=== PATIENT | female | born 1965 | race Caucasian/White ===

== ENCOUNTER 2016-08-29 14:45 | Outpatient (RCR) | payer OTHER ==
[~2016-08-29 14:45] MED LIST: ALEVE 220MG220 MG PO; ASPI325T6 PO; ATIVAN 0.50.5 MG/TAB PO; ATIVAN 1MG T1 MG/TAB PO; ATIVAN2 MG PO; CALCIUM-500 5001 CTB PO; CELEXA 20MG20 MG/TAB PO; CELEXA40 MG PO; CITALOPRAM PO; FERROUS SULFATE65 MG PO; FOLIC ACID 11 MG/TA1 PO; FOLIC ACID 40400 MCG PO; FOLIC ACID800 MCG PO; IRON325 M1 PO; IRON325 MG PO; K-DUR 10 MEQ T10 MEQ; KLOR-CON20 MEQ PO; LAMICTAL 100MG100 MG PO; LAMICTAL150 MG PO; LEVAQUIN 750MG750 M1 PO; MAXALT5 MG PO; MOTRIN 200200 MG/TAB PO; NATURE'S BLE1000 MCG PO; NORCO 325 MG-7.1 TAB PO; OXYCONTIN 10MG10 MG PO; PHENTERMINE15 MG PO; RISPERDAL 0.20.25 MG PO; RISPERDAL 1M1 MG/TAB PO; RISPERDAL2 MG PO; STOOL SOFTENER100 M2 PO; TENORMIN 2525 MG/TAB PO; VITAMIN C500 MG PO; ZOFRAN ODT4 MG PO
== END 2016-09-05 08:45 | disposition home or self-care (01) ==
LOC: WSPT 14:45
DX: M25.862 Other specified joint disorders, left knee (principal)

== ENCOUNTER 2016-10-01 15:45 | Outpatient (RCR) | payer OTHER | END 2016-11-14 10:34 | disposition home or self-care (01) | LOC: WSPT 15:45 | DX: M62.830 Muscle spasm of back (principal) | CPT/HCPCS: G0283-GP ==

== ENCOUNTER → 2017-01-16 | Outpatient (CLI) | payer BC ==
[~2017-01-16] MED LIST changes: +K-DUR20 MEQ PO; +NORCO 325 MG-51 TAB PO; +PERCOCET 325 MG1 TA2 PO; +ULTRAM 50MG TAB50 MG PO
== END ==
LOC: BHSO 13:30
DX: F31.73 Bipolar disorder, in partial remission, most recent episode manic (principal)

== ENCOUNTER 2017-03-17 13:11 | Emergency (ER) | payer BC ==
[~2017-03-17] VITALS: Ht 162.6 cm; Wt 125.0 kg
[~2017-03-17 13:11] MED LIST changes: -K-DUR20 MEQ PO; -NORCO 325 MG-51 TAB PO; -PERCOCET 325 MG1 TA2 PO; -ULTRAM 50MG TAB50 MG PO
[2017-03-17 13:18] VITALS: BP 131/76; PULSE 77; TEMP 97.3
[2017-03-17] MEDS ORDERED: PERCOCET 325 MG1 TA2 PO (14:45)
== END 2017-03-17 15:54 | disposition home or self-care (01) ==
LOC: COL.ER 13:11
DX: S62.647A Nondisplaced fracture of proximal phalanx of left little finger, initial encounter for closed fracture (principal); S63.265A Dislocation of metacarpophalangeal joint of left ring finger, initial encounter; M54.2 Cervicalgia; S50.811A Abrasion of right forearm, initial encounter; S40.811A Abrasion of right upper arm, initial encounter; S80.211A Abrasion, right knee, initial encounter; G43.909 Migraine, unspecified, not intractable, without status migrainosus; W19.XXXA Unspecified fall, initial encounter; Y92.008 Other place in unspecified non-institutional (private) residence as the place of occurrence of the external cause; I10 Essential (primary) hypertension; F32.9 Major depressive disorder, single episode, unspecified; F41.9 Anxiety disorder, unspecified; F17.210 Nicotine dependence, cigarettes, uncomplicated; M25.571 Pain in right ankle and joints of right foot; M54.5 Low back pain; R07.89 Other chest pain
CPT/HCPCS: J1170; J1885

== ENCOUNTER 2017-03-22 20:27 | Emergency (ER) | payer BC ==
[~2017-03-22] VITALS: Ht 162.6 cm; Wt 127.3 kg
[~2017-03-22 20:27] MED LIST changes: +PERCOCET 325 MG1 TA2 PO
[2017-03-22 20:35] VITALS: TEMP 98.5
[2017-03-22 21:52] LABS: BASO % 0.2 % (0.0-2.0); EOS # 0.3 (0.0-0.7); EOS % 2.9 % (0-4.0); GRAN # 7.3 (1.4-6.5); LYMPH # 2.3 (1.2-3.4); MEAN CELL VOLUME 92 fl (80.0-100.0); MEAN CORPUSCULAR HGB CONC 33 g/dl (33.0-37.0); MEAN PLATELET VOLUME 9.4 fl (7.4-10.4); MONO # 0.4 (0.1-0.6); MONO % 3.6 % (1.7-9.3); PLATELET COUNT 262 K/mm3 (130-400); RED BLOOD COUNT 3.54 M/mm3 (4.10-5.30); REDCELL DISTRIBUTION WIDTH-CV 14.4 % (11.5-14.5); WHITE BLOOD COUNT 10.3 K/mm3 (4.8-10.8)
[2017-03-22 21:53] LABS: HEMATOCRIT 32.5 % (37.0-47.0); HEMOGLOBIN 10.8 g/dl (12.5-16.0); MEAN CORPUSCULAR HEMOGLOBIN 31 pg (27.0-31.0)
[2017-03-22 22:13] LABS: ADJUSTED CALCIUM 9.1 mg/dL (8.4-10.2); ALANINE AMINOTRANSFERASE 21 U/L (9-52); ALBUMIN 3.1 gm/dL (3.5-5.0); ALKALINE PHOSPHATASE 104 U/L (50-136); ANION GAP 6 mmol/L (7-16); BILIRUBIN,TOTAL 0.4 mg/dL (0.0-1.0); BLOOD UREA NITROGEN 7 mg/dL (7-17); CALCIUM 8.4 mg/dL (8.4-10.2); CARBON DIOXIDE 33 mmol/L (22-30); CHLORIDE 98 mmol/L (98-107); CREATININE, serum 0.73 mg/dL (0.52-1.25); GLUCOSE 89 mg/dL (74-106); SODIUM 137 mmol/L (137-145); TOTAL PROTEIN 6.3 gm/dL (6.4-8.2)
[2017-03-22 22:26] LABS: B-TYPE NATRIURETIC PEPTIDE 263 pg/mL (0-125)
[2017-03-22 22:27] LABS: TROPONIN-I < 0.012 ng/mL (0.000-0.034)
[2017-03-22 22:32] LABS: MAGNESIUM 2.1 mg/dL (1.6-2.3)
[2017-03-22] MEDS ORDERED: NORCO 325 MG-51 TAB PO (22:38)
[2017-03-22] MEDS ORDERED: K-DUR20 MEQ PO (22:40)
[2017-03-22 23:09] LABS: POTASSIUM 2.7 mmol/L (3.4-5.0)
[2017-03-22] MEDS ORDERED: ULTRAM 50MG TAB50 MG PO (23:56)
[2017-03-23 00:12] VITALS: BP 109/68; PULSE 75
== END 2017-03-23 00:23 | disposition home or self-care (01) ==
LOC: COL.ER 20:27
PROVIDERS: Emergency Medicine
DX: R07.89 Other chest pain (principal); E87.6 Hypokalemia; R07.1 Chest pain on breathing; R06.02 Shortness of breath; F17.200 Nicotine dependence, unspecified, uncomplicated; V00.811A Fall from moving wheelchair (powered), initial encounter; I51.7 Cardiomegaly
CPT/HCPCS: A9284; J3010; J3480; J7030; Q9967

== ENCOUNTER → 2017-07-17 | Outpatient (CLI) | payer BC ==
[~2017-07-17] MED LIST changes: +K-DUR20 MEQ PO; +NORCO 325 MG-51 TAB PO; +ULTRAM 50MG TAB50 MG PO
== END ==
LOC: BHSO 12:59
DX: F31.73 Bipolar disorder, in partial remission, most recent episode manic (principal)

== ENCOUNTER 2017-09-08 00:54 | Emergency (ER) | payer BC ==
[~2017-09-08] VITALS: Ht 162.6 cm; Wt 120.5 kg
[2017-09-08 01:00] VITALS: BP 118/67; TEMP 98.5
[2017-09-08 01:33] LABS: BASO % 0.2 % (0.0-2.0); EOS # 0.2 (0.0-0.7); EOS % 1.2 % (0-4.0); GRAN % 72.8 % (42.2-75.2); HEMATOCRIT 39.1 % (37.0-47.0); HEMOGLOBIN 12.7 g/dl (12.5-16.0); LYMPH # 3.1 (1.2-3.4); LYMPH % 20.6 % (20.0-51.0); MEAN CELL VOLUME 97 fl (80.0-100.0); MEAN CORPUSCULAR HEMOGLOBIN 31 pg (27.0-31.0); MEAN CORPUSCULAR HGB CONC 33 g/dl (33.0-37.0); MEAN PLATELET VOLUME 9.9 fl (7.4-10.4); MONO # 0.7 (0.1-0.6); MONO % 4.8 % (1.7-9.3); PLATELET COUNT 275 K/mm3 (130-400); RED BLOOD COUNT 4.04 M/mm3 (4.10-5.30); REDCELL DISTRIBUTION WIDTH-CV 16.4 % (11.5-14.5)
[2017-09-08 01:47] LABS: ALBUMIN 3.9 gm/dL (3.5-5.0); BILIRUBIN,TOTAL 0.4 mg/dL (0.0-1.0); C-REACTIVE PROTEIN 3.2 mg/dL (0.0-0.9); CALCIUM 8.9 mg/dL (8.4-10.2); CREATININE, serum 0.7 mg/dL (0.52-1.25); POTASSIUM 3.5 mmol/L (3.4-5.0); TOTAL PROTEIN 6.9 gm/dL (6.4-8.2)
[2017-09-08] MEDS ORDERED: ZOFRAN ODT4 MG PO (03:45)
[2017-09-08 04:35] LABS: COLLECTION METHOD CLEAN CATCH
[2017-09-08 04:41] LABS: MUCOUS Present /lpf; PH 5 (5-8); SQUAMOUS EPITHELIAL 0-2 /hpf; URINE APPEARANCE Clear; URINE BACTERIA None Seen /hpf; URINE BILIRUBIN Negative (NEGATIVE); URINE BLOOD 1+ (NEGATIVE); URINE COLOR Yellow; URINE GLUCOSE Negative (NEGATIVE); URINE KETONE Negative (NEGATIVE); URINE LEUKOCYTE ESTERASE Negative (NEGATIVE); URINE NITRATE Negative (NEGATIVE); URINE PROTEIN(semi-quant) Negative (NEGATIVE); URINE RBC 0-2 /hpf; URINE UROBILINOGEN Negative (NEGATIVE)
[2017-09-08] MEDS ORDERED: PHENERGAN 25 TA25 MG PO (05:07)
[2017-09-08 05:46] VITALS: PULSE 79
== END 2017-09-08 05:49 | disposition home or self-care (01) ==
LOC: COL.ER 00:54
PROVIDERS: Emergency Medicine
DX: R11.10 Vomiting, unspecified (principal); R19.7 Diarrhea, unspecified; F17.210 Nicotine dependence, cigarettes, uncomplicated; Z90.49 Acquired absence of other specified parts of digestive tract; Z90.710 Acquired absence of both cervix and uterus
CPT/HCPCS: J2405; J2550; J7030; J7040; Q9967

== ENCOUNTER → 2017-10-22 | Outpatient (CLI) | payer BC ==
[~2017-10-22] MED LIST changes: +PHENERGAN 25 TA25 MG PO
[2017-10-22 17:20] LABS: BASO % 0.4 % (0.0-2.0); EOS # 0.2 (0.0-0.7); EOS % 1.7 % (0-4.0); GRAN # 7.2 (1.4-6.5); GRAN % 67.5 % (42.2-75.2); HEMATOCRIT 39.3 % (37.0-47.0); HEMOGLOBIN 12.9 g/dl (12.5-16.0); LYMPH # 2.8 (1.2-3.4); LYMPH % 26.4 % (20.0-51.0); MEAN CELL VOLUME 99 fl (80.0-100.0); MEAN CORPUSCULAR HEMOGLOBIN 33 pg (27.0-31.0); MEAN CORPUSCULAR HGB CONC 33 g/dl (33.0-37.0); MEAN PLATELET VOLUME 9.6 fl (7.4-10.4); MONO # 0.4 (0.1-0.6); MONO % 3.7 % (1.7-9.3); PLATELET COUNT 289 K/mm3 (130-400); RED BLOOD COUNT 3.96 M/mm3 (4.10-5.30); REDCELL DISTRIBUTION WIDTH-CV 14.2 % (11.5-14.5)
[2017-10-22 17:30] LABS: ALBUMIN 3.8 gm/dL (3.5-5.0); BILIRUBIN,TOTAL 0.2 mg/dL (0.0-1.0); CALCIUM 8.9 mg/dL (8.4-10.2); CREATININE, serum 0.67 mg/dL (0.52-1.25); TOTAL PROTEIN 7.1 gm/dL (6.4-8.2)
[2017-10-22 18:02] LABS: THYROID STIMULATING HORMONE 1.64 uIU/mL (0.465-4.680)
[2017-10-23 15:52] LABS: FOLATE (FOLIC ACID) 2.4 ng/mL (7.0-31.4)
[2017-10-23 23:49] LABS: RPR (VDRL) Non-reactive (())
== END ==
LOC: COL.LAB 16:40
PROVIDERS: Internal Medicine
DX: R41.89 Other symptoms and signs involving cognitive functions and awareness (principal); E61.1 Iron deficiency; E53.8 Deficiency of other specified B group vitamins

== ENCOUNTER → 2017-10-24 | Outpatient (CLI) | payer BC | LOC: COL.RAD 19:09 | DX: M41.86 Other forms of scoliosis, lumbar region (principal); M47.816 Spondylosis without myelopathy or radiculopathy, lumbar region; Z90.49 Acquired absence of other specified parts of digestive tract ==

== ENCOUNTER → 2017-11-25 | Outpatient (CLI) | payer BC | LOC: COL.RAD 10:17 | DX: M47.896 Other spondylosis, lumbar region (principal); M48.061 Spinal stenosis, lumbar region without neurogenic claudication; M25.78 Osteophyte, vertebrae ==

== ENCOUNTER → 2017-11-25 | Outpatient (CLI) | payer BC | LOC: MC.RAD 12:51 | DX: Z12.31 Encounter for screening mammogram for malignant neoplasm of breast (principal) ==

== ENCOUNTER → 2017-12-04 | Outpatient (CLI) | payer BC | LOC: MHCPAIN 11:08 | DX: G89.29 Other chronic pain (principal); M47.27 Other spondylosis with radiculopathy, lumbosacral region; M48.061 Spinal stenosis, lumbar region without neurogenic claudication; F17.210 Nicotine dependence, cigarettes, uncomplicated | CPT/HCPCS: G0463 ==

== ENCOUNTER → 2017-12-25 | Outpatient (CLI) | payer BC | LOC: COL.LAB 08:06 | DX: E53.8 Deficiency of other specified B group vitamins (principal); R41.89 Other symptoms and signs involving cognitive functions and awareness ==

== ENCOUNTER → 2017-12-30 | Outpatient (CLI) | payer BC | LOC: BHSO 08:54 | DX: F31.81 Bipolar II disorder (principal) | CPT/HCPCS: G0463 ==

== ENCOUNTER → 2017-12-31 | Outpatient (CLI) | payer BC | LOC: MHCPAIN 08:18 | DX: M47.817 Spondylosis without myelopathy or radiculopathy, lumbosacral region (principal); M48.061 Spinal stenosis, lumbar region without neurogenic claudication; M46.96 Unspecified inflammatory spondylopathy, lumbar region | CPT/HCPCS: J1100; Q9967 ==

== ENCOUNTER → 2018-01-19 | Outpatient (CLI) | payer BC | LOC: MHCPAIN 15:10 | DX: G89.29 Other chronic pain (principal); M47.817 Spondylosis without myelopathy or radiculopathy, lumbosacral region; M54.16 Radiculopathy, lumbar region; M53.3 Sacrococcygeal disorders, not elsewhere classified; M48.061 Spinal stenosis, lumbar region without neurogenic claudication | CPT/HCPCS: G0463 ==

== ENCOUNTER → 2018-03-03 | Outpatient (CLI) | payer BC | LOC: BHSO 11:33 | DX: F31.81 Bipolar II disorder (principal) | CPT/HCPCS: G0463 ==

== ENCOUNTER → 2018-03-17 | Outpatient (CLI) | payer BC | LOC: MHCPAIN 07:55 | DX: G89.29 Other chronic pain (principal); M47.817 Spondylosis without myelopathy or radiculopathy, lumbosacral region; M54.16 Radiculopathy, lumbar region; M53.3 Sacrococcygeal disorders, not elsewhere classified; M48.061 Spinal stenosis, lumbar region without neurogenic claudication | CPT/HCPCS: G0463 ==

== ENCOUNTER 2018-03-31 15:45 | Outpatient (RCR) | payer BC | END 2018-04-07 | disposition home or self-care (01) | LOC: WSC | DX: M47.27 Other spondylosis with radiculopathy, lumbosacral region (principal); M48.061 Spinal stenosis, lumbar region without neurogenic claudication; G89.29 Other chronic pain; Z79.899 Other long term (current) drug therapy ==

== ENCOUNTER 2018-05-14 08:07 | Emergency (ER) | payer BC ==
[~2018-05-14] VITALS: Ht 162.6 cm; Wt 115.5 kg
[2018-05-14 08:09] VITALS: BP 114/54; TEMP 98.5
[2018-05-14] MEDS ORDERED: PERCOCET 325 MG1 TA2 PO (08:52)
[2018-05-14 09:27] VITALS: PULSE 102
== END 2018-05-14 09:27 | disposition home or self-care (01) ==
LOC: COL.ER 08:07
DX: S82.831A Other fracture of upper and lower end of right fibula, initial encounter for closed fracture (principal); F32.9 Major depressive disorder, single episode, unspecified; W18.39XA Other fall on same level, initial encounter; Y92.410 Unspecified street and highway as the place of occurrence of the external cause
CPT/HCPCS: L1846

== ENCOUNTER → 2018-06-01 | Outpatient (CLI) | payer BC | LOC: MHCPAIN 14:09 | DX: G89.29 Other chronic pain (principal); M47.817 Spondylosis without myelopathy or radiculopathy, lumbosacral region; M54.16 Radiculopathy, lumbar region; M53.3 Sacrococcygeal disorders, not elsewhere classified; M48.061 Spinal stenosis, lumbar region without neurogenic claudication | CPT/HCPCS: G0463 ==

== ENCOUNTER → 2018-06-03 | Outpatient (CLI) | payer BC | LOC: MHCPAIN 08:58 | DX: M47.817 Spondylosis without myelopathy or radiculopathy, lumbosacral region (principal); M54.16 Radiculopathy, lumbar region | CPT/HCPCS: J1040; Q9967 ==

== ENCOUNTER → 2018-06-04 | Outpatient (CLI) | payer BC ==
[2018-06-04 09:51] LABS: BASO # 0.1 (0.0-0.2); BASO % 0.4 % (0.0-2.0); EOS # 0.1 (0.0-0.7); EOS % 0.5 % (0-4.0); GRAN # 11.6 (1.4-6.5); GRAN % 77.3 % (42.2-75.2); HEMATOCRIT 43.9 % (37.0-47.0); HEMOGLOBIN 14.5 g/dl (12.5-16.0); LYMPH # 2.8 (1.2-3.4); LYMPH % 18.5 % (20.0-51.0); MEAN CELL VOLUME 98 fl (80.0-100.0); MEAN CORPUSCULAR HEMOGLOBIN 32 pg (27.0-31.0); MEAN CORPUSCULAR HGB CONC 33 g/dl (33.0-37.0); MEAN PLATELET VOLUME 9.7 fl (7.4-10.4); MONO # 0.4 (0.1-0.6); MONO % 2.8 % (1.7-9.3); PLATELET COUNT 339 K/mm3 (130-400); RED BLOOD COUNT 4.48 M/mm3 (4.10-5.30); REDCELL DISTRIBUTION WIDTH-CV 13.8 % (11.5-14.5)
[2018-06-04 09:52] LABS: COLLECTION METHOD CLEAN CATCH
[2018-06-04 09:59] LABS: MUCOUS Present /lpf; PH 5 (5-8); SQUAMOUS EPITHELIAL 0-2 /hpf; URINE APPEARANCE Clear; URINE BACTERIA None Seen /hpf; URINE BILIRUBIN Negative (NEGATIVE); URINE BLOOD 2+ (NEGATIVE); URINE COLOR Straw; URINE GLUCOSE Negative (NEGATIVE); URINE KETONE Negative (NEGATIVE); URINE LEUKOCYTE ESTERASE Negative (NEGATIVE); URINE NITRATE Negative (NEGATIVE); URINE PROTEIN(semi-quant) Negative (NEGATIVE); URINE RBC 0-2 /hpf; URINE UROBILINOGEN Negative (NEGATIVE)
[2018-06-04 10:00] LABS: ALBUMIN 4.1 gm/dL (3.5-5.0); BILIRUBIN,TOTAL 0.4 mg/dL (0.0-1.0); CALCIUM 9.3 mg/dL (8.4-10.2); CHOLESTEROL RISK RATIO 4.8; CREATININE, serum 0.72 mg/dL (0.52-1.25); POTASSIUM 4.3 mmol/L (3.4-5.0); TOTAL PROTEIN 7.6 gm/dL (6.4-8.2)
[2018-06-04 10:29] LABS: TSH w REFLEX 1.5 uIU/mL (0.465-4.680)
[2018-06-04 23:27] LABS: FOLATE (FOLIC ACID) 2.8 ng/mL (7.0-31.4)
== END ==
LOC: COL.LAB 09:13
PROVIDERS: Internal Medicine
DX: Z00.00 Encounter for general adult medical examination without abnormal findings (principal); R73.9 Hyperglycemia, unspecified; E53.8 Deficiency of other specified B group vitamins; E78.5 Hyperlipidemia, unspecified; D50.9 Iron deficiency anemia, unspecified; R20.2 Paresthesia of skin

== ENCOUNTER → 2018-06-16 | Outpatient (CLI) | payer BC | LOC: COL.RAD 08:15 | DX: R29.6 Repeated falls (principal) ==

== ENCOUNTER → 2018-08-04 | Outpatient (CLI) | payer BC | LOC: BHSO 09:19 | DX: F31.81 Bipolar II disorder (principal) | CPT/HCPCS: G0463 ==

== ENCOUNTER → 2018-08-11 | Outpatient (CLI) | payer BC | LOC: MHCPAIN 14:22 | DX: G89.29 Other chronic pain (principal); M47.817 Spondylosis without myelopathy or radiculopathy, lumbosacral region; M54.16 Radiculopathy, lumbar region; M53.3 Sacrococcygeal disorders, not elsewhere classified | CPT/HCPCS: G0463 ==

== ENCOUNTER → 2018-08-26 | Outpatient (CLI) | payer BC | LOC: MHCPAIN 07:39 | DX: M47.817 Spondylosis without myelopathy or radiculopathy, lumbosacral region (principal); M54.16 Radiculopathy, lumbar region ==

== ENCOUNTER → 2018-09-08 | Outpatient (CLI) | payer BC | LOC: MHCPAIN 09:45 | DX: G89.29 Other chronic pain (principal); M47.817 Spondylosis without myelopathy or radiculopathy, lumbosacral region; M54.16 Radiculopathy, lumbar region; M53.3 Sacrococcygeal disorders, not elsewhere classified | CPT/HCPCS: G0463 ==

== ENCOUNTER → 2018-09-28 | Outpatient (CLI) | payer BC | LOC: BHSO 15:41 | DX: F31.81 Bipolar II disorder (principal) | CPT/HCPCS: G0463 ==

== ENCOUNTER → 2018-10-11 | Outpatient (CLI) | payer BC | LOC: MHCPAIN 12:17 | DX: M47.817 Spondylosis without myelopathy or radiculopathy, lumbosacral region (principal); M54.16 Radiculopathy, lumbar region | CPT/HCPCS: J1100; J2250; J3010 ==

== ENCOUNTER → 2018-11-23 | Outpatient (CLI) | payer BC | LOC: MHCPAIN 08:10 | DX: G89.29 Other chronic pain (principal); M47.817 Spondylosis without myelopathy or radiculopathy, lumbosacral region; M54.16 Radiculopathy, lumbar region; M53.3 Sacrococcygeal disorders, not elsewhere classified | CPT/HCPCS: G0463 ==

== ENCOUNTER → 2018-11-25 | Outpatient (CLI) | payer BC | LOC: MHCPAIN 11-11 15:00 | DX: M47.817 Spondylosis without myelopathy or radiculopathy, lumbosacral region (principal); M54.16 Radiculopathy, lumbar region | CPT/HCPCS: J1100; J2250; J3010 ==

== ENCOUNTER 2019-01-03 02:14 | Emergency (ER) | payer BC ==
[~2019-01-03] VITALS: Ht 162.6 cm; Wt 113.6 kg
[~2019-01-03 02:14] MED LIST changes: -RISPERDAL2 MG PO; +RISPERDAL3 MG PO
[2019-01-03 02:17] VITALS: BP 138/84; TEMP 98.6
[2019-01-03] MEDS ORDERED: DOXYCYCLINE HY100 MG PO (02:35)
[2019-01-03 02:45] VITALS: PULSE 99
== END 2019-01-03 02:45 | disposition home or self-care (01) ==
LOC: COL.ER 02:14
DX: J32.9 Chronic sinusitis, unspecified (principal); F17.210 Nicotine dependence, cigarettes, uncomplicated; Z88.0 Allergy status to penicillin

== ENCOUNTER → 2019-01-26 | Outpatient (CLI) | payer BC ==
[~2019-01-26] MED LIST changes: +DOXYCYCLINE HY100 MG PO
== END ==
LOC: BHSO 15:59
DX: F31.81 Bipolar II disorder (principal)
CPT/HCPCS: G0463

== ENCOUNTER 2019-02-07 10:23 | Inpatient (IN) | payer BC ==
[~2019-02-07] VITALS: Ht 162.6 cm; Wt 121.2 kg
[2019-03-10] VITALS (11 sets, daily range): BP systolic 95–134; BP diastolic 34–74; PULSE 72–98; TEMP 73–98.4
[2019-03-10] MEDS ORDERED: ATIVAN 1MG T1 MG/TAB PO (10:17)
[2019-03-10] MEDS ORDERED: NEURONTIN300 MG/CAP PO (10:20)
[2019-03-10] MEDS ORDERED: NEURONTIN600 MG/TAB PO (10:20)
[2019-03-10] MEDS ORDERED: STOOL SOFTENER100 M2 PO (10:21)
[2019-03-10] MEDS ORDERED: FOLIC ACID 40400 MCG PO (10:22)
[2019-03-10] MEDS ORDERED: TYLENOL 8 HR PO (10:23)
--- NOTE | 2019-03-10 11:08 | NUR ---
PT TO SURGERY PER BED. ASSESSMENTS COMPLETE, UNSUCCESFUL IV START X2. AIV NOT AVAILABLE FOR ASSIST. NOTIFIED MARLA CARY. PT HAS HX OF RESPIRATORY DISTRESS POST OPERATIVLEY. PT TO DISCUSS WITH ANIA HARVEY CRNA ON ARRIVAL.
--- NOTE | 2019-03-10 16:01 | NUR ---
PT TO ROOM 332 PER BED WITH REPORT FROM RAMONA CARY PACU@ [id number]. PT IS DROWSEY BUT AROUSEABLE. DRESSING TO RIGHT ANKLSE CDI WITH OCCLUSIVE DRESSING INPLACE. TOES WARM TO TOUCH, UNABLE TO PALPATE PEDAL PULSE BECAUSE OF DRESSING. IV TO PUMP, BOWDEN CATHETER DRAINING YELLOW URINE. MOTHER AT BEDSIDE WARM BLANKET PROVIDED PER PT REQUEST.
--- NOTE | 2019-03-10 18:54 | NUR ---
REPORT TO KARYN CARY.
--- NOTE | 2019-03-10 21:30 | NUR ---
Pt. sitting up in bed at this time. Pt. is A&OX3, assessment complete. INT to lt. ac patent. IV to lt. wrist patent, IV fluids infusing per orders. Dressing to rt. ankle, CDI. Pt. reports pain at a 6 on pain scale, gave pain meds per orders. Pt. denies further needs at this time. Call light within reach.
[2019-03-11 03:00] VITALS: BP 92/44; PULSE 53; TEMP 98.3
[2019-03-11] MEDS ORDERED: PERCOCET 325 MG1 TA3 PO (06:17)
[2019-03-11] MEDS ORDERED: ASPI325T6 PO (06:21)
[2019-03-11 06:28] LABS: HEMATOCRIT 39.4 % (37.0-47.0); HEMOGLOBIN 12.2 g/dl (12.5-16.0)
--- NOTE | 2019-03-11 06:44 | NUR ---
appears to be dozing but awakens easily, bedside shift report received from RAEANN Johnson
[2019-03-11] MEDS ORDERED: CELEBREX 200MG200 MG PO (07:31)
[2019-03-11] MEDS ORDERED: MINOCYCLIN100 MG/CAP PO (07:32)
--- NOTE | 2019-03-11 08:10 | NUR ---
appears to be sleeping, in bed with lights off, eyes closed, resp quiet and easy and does not arouse when nurse entered room, awakened and full assessment completed, see interventions for further info, leal cathter removed, then she asks when she can having something for pain, informed her it would be another hour before the time was appropriate, verbalizes understanding
[2019-03-11 08:18] VITALS: BP 93/48; PULSE 111; TEMP 09.6
--- NOTE | 2019-03-11 08:51 | NUR ---
physical therapy in to work with patient, ambulated short distance with walker and then a little further with knee walker, moved well
--- NOTE | 2019-03-11 10:28 | NUR ---
sitting up in chair attempting to eat breakfast but dozes at intervals
--- NOTE | 2019-03-11 11:04 | NUR ---
Initial visit; Patient thanked Bell Clerk for looking in on her and offering prayer and spiritual care.
--- NOTE | 2019-03-11 11:23 | NUR ---
therapist informed this nurse patient is very drowsy, entered room and called her name and she did respond quickly but does appear drowsy, HIGH SCHOOL FRENCH TEACHER in to check vital signs, informed patient would need to not give pain pills as often since she is very drowsy and verbalizes understanding
[2019-03-11 11:25] VITALS: BP 120/66; PULSE 131; TEMP 99.1
--- NOTE | 2019-03-11 11:33 | NUR ---
O2 sat 50% on room air when checked by PALM GATHERER, O2 placed on at 4l/NC and O2 sat up to 90%, cardopulmonary notified andn will come and check on patinet, heart rate in the 130s, continues to fall asleep and and not breathe deeply and then O2 sat down to 89%, cardiopulmonary in room, will assist patietn back to bed and place on CPAP
--- NOTE | 2019-03-11 11:47 | NUR ---
called and left message on Dr Bright's cell phone regarding patient's condition
--- NOTE | 2019-03-11 11:52 | NUR ---
Dr Perez returned call and orders received, cardiopulmonary at bedside and informed to place patient on bipap, pharmacy notified of need to give narcan
--- NOTE | 2019-03-11 12:02 | NUR ---
cardiopulmonary at bedside, O2 sats are remains in mid to high 80s and BIPAP on, IV fluids restarted and narcan 0.04mg given slow IV, heart rate in 120s
--- NOTE | 2019-03-11 12:04 | NUR ---
narcan 0.04mg given slow IV, patient resting with eyes closed and bipap on
--- NOTE | 2019-03-11 12:05 | NUR ---
narcan 0.04mg given slow IV, cardiopulmonary remains at bedside monitoring O2 sat and bipap
--- NOTE | 2019-03-11 12:06 | NUR ---
narcan 0.04mg given slow IV, patient opens her eyes and says that her ankle is hurting, is alert and oriented but remains sleepy,
--- NOTE | 2019-03-11 12:10 | NUR ---
remains on bipap at 25% O2 and O2 sat 95% and heaert rate is now 115
--- NOTE | 2019-03-11 12:15 | NUR ---
when O2 down to 21% per bipap O2 down to 90%, back up to 25% and O2 sat back to up 95% and heart rate remains in the mid 110s, patient is tearful and states her ankle is hurting, visted with her about the effect of the percocet and her not ventilating after taking that, verbalizes understanding
--- NOTE | 2019-03-11 12:25 | NUR ---
O2 sat 95% on biipapa at 25% O2 and Heart rate 111
--- NOTE | 2019-03-11 12:50 | NUR ---
remains on bipap at 25% O2, O2 93# and heart rate 105, appears to be sleeping, is not tearful
--- NOTE | 2019-03-11 13:35 | NUR ---
awakens easily, O2 sat 92%, heart rate 105
--- NOTE | 2019-03-11 14:01 | NUR ---
SW met with patient about discharge planning. Patient lives independently at home alone but plans to stay with her mother for a few weeks after discharge. Patient's PCP is Abdoulaye Vela and she obtains prescriptions from [facility]. Patient reports she is independent with all ADLs and does not normally use any DME or home health services. Patient reports she did obtian a front wheeled walker for after her surgery and is interested in renting a knee walker. SW informed patient that [facility] does not usually cover the cost of a knee walker but SW provided DME companies that have knee walkers in stock and also their rental prices. Patient reports she obtained her walker at [facility] and would like to rent a knee walker from them. SW contacted [facility] to reserve a knee walker for patient. ROMAINE then informed that patient will likely not discharge today. Patient reports she will ask her mother to pickup the knee walker before the weekend. ROMAINE does not anticipate any discharge needs.
--- NOTE | 2019-03-11 14:04 | NUR ---
Dr Bright called to check on patient, report given, will consult hospitalist, Ange MONTERO notified
--- NOTE | 2019-03-11 14:20 | NUR ---
radiology in and chest xray compleed, Tara MONTERO now in to see patient
--- NOTE | 2019-03-11 14:28 | NUR ---
cardiopulmonary in now to draw ABG
--- NOTE | 2019-03-11 14:39 | NUR ---
Dr Ross was in to see patient
[2019-03-11 14:54] LABS: ARTERIAL BLD GAS O2 SATURATION 91.5 % (92-100); ARTERIAL BLD GAS TCO2 CT 24.9; ARTERIAL BLOOD GAS BASE EXCESS -3.1 (-2-2); ARTERIAL BLOOD GAS HCO3 23.5 meq/L (22-26); ARTERIAL BLOOD GAS PCO2 48.2 mmHg (35-45); ARTERIAL BLOOD GAS PO2 63.2 mmHg (80-100); ARTERIAL BLOOD GAS pH 7.31 (7.35-7.45)
--- NOTE | 2019-03-11 15:00 | NUR ---
TROUBLE TRACER assisted patient into bathroom, teddyne she came out of bathroom independently, instructed her she needs to always call for help, verbalizes understanding, cardiopulmonary in and assisting her with continuing the BIPAP
[2019-03-11 15:23] LABS: BASO % 0.3 % (0.0-2.0); EOS # 0.1 (0.0-0.7); EOS % 0.3 % (0-4.0); GRAN # 12.7 (1.4-6.5); HEMATOCRIT 39.4 % (37.0-47.0); HEMOGLOBIN 12.9 g/dl (12.5-16.0); LYMPH # 0.9 (1.2-3.4); LYMPH % 6.3 % (20.0-51.0); MEAN CELL VOLUME 100 fl (80.0-100.0); MEAN CORPUSCULAR HEMOGLOBIN 33 pg (27.0-31.0); MEAN CORPUSCULAR HGB CONC 33 g/dl (33.0-37.0); MONO # 0.7 (0.1-0.6); MONO % 4.5 % (1.7-9.3); PLATELET COUNT 216 K/mm3 (130-400); RED BLOOD COUNT 3.93 M/mm3 (4.10-5.30); REDCELL DISTRIBUTION WIDTH-CV 14.7 % (11.5-14.5)
[2019-03-11 15:35] LABS: ALBUMIN 3.7 gm/dL (3.5-5.0); BILIRUBIN,TOTAL 0.5 mg/dL (0.0-1.0); CALCIUM 8.8 mg/dL (8.4-10.2); CREATININE, serum 0.76 (0.52-1.25); POTASSIUM 4.8 mmol/L (3.4-5.0); TOTAL PROTEIN 7.1 gm/dL (6.4-8.2)
[2019-03-11 15:39] VITALS: BP 120/58; PULSE 108; TEMP 98.2
[2019-03-11 15:48] LABS: TROPONIN-I 0.097 ng/mL (0.000-0.035)
--- NOTE | 2019-03-11 16:00 | NUR ---
spoke with Dr Estrada regarding consult, wants to get echo done tonight, radiology notified and will notify vascular landscape laborer
--- NOTE | 2019-03-11 16:05 | NUR ---
oil processing technician notified of the need for an echo tonight
--- NOTE | 2019-03-11 16:51 | NUR ---
vascular label printer in to complete echocardiogram
--- NOTE | 2019-03-11 17:34 | NUR ---
resting in bed visiting with a friend, medicated with tramadol 100mg and scheduled tylenol 650mg, cardiopulmonary in and breathing treatment completed, denies further needs
--- NOTE | 2019-03-11 17:55 | NUR ---
radiology orderly here and to department for CT scan
--- NOTE | 2019-03-11 18:27 | NUR ---
returned to room per , assisted into bathroom with knee walker, then back to bed, O2 sat 91% and heart rate 112, O2 on at 3L/NC and is now ordering supperDr Estrada in to see patient,
--- NOTE | 2019-03-11 18:49 | NUR ---
bedside shift report given to RAEANN Maier
--- NOTE | 2019-03-11 20:00 | NUR ---
Report received. Assumed care for activated sludge attendant. Assessment complete. VS stable. C/O pain to right ankle rating 4/10 on pain scale-denies need for intervention. States she feels exhausted. Denies N/V or shortness of breath. IV in left AC leaking-DCd at this time. Dressing to right ankle with small amount of drainage noted-no increase from day shift. Fresh ice pack given-elevated on pillow. Assisted with BiPAP. Encouraged to call for any questions or concerns as well as increased pain level. Verbalizes understanding. Will monitor.
[2019-03-11 20:19] VITALS: BP 98/54; PULSE 88; TEMP 98.5
--- NOTE | 2019-03-11 22:55 | NUR ---
Dr Estrada notified of elevated troponin level of 0.137. Orders to redraw level at 0600 in am.
[2019-03-11 23:59] VITALS: BP 104/64; PULSE 104; TEMP 97.4
[2019-03-12 04:24] VITALS: BP 119/61; PULSE 88; TEMP 97.4
--- NOTE | 2019-03-12 05:26 | NUR ---
Rested off and on this shift. BiPAP off per request. O2 sat from 90-92% on room air. States she doesnt want CPAP on either so O2@ 2L/NC. Received Ultram at 0500 for pain to right ankle-rating 7/10 on pain scale. Denies any other needs at this time. Will monitor.
[2019-03-12 08:57] LABS: HEMOGLOBIN 11.8 g/dl (12.5-16.0)
[2019-03-12] MEDS ORDERED: ULTRAM 50MG TAB50 MG PO (09:10)
[2019-03-12] MEDS ORDERED: TYLENOL 325MG325 MG PO (09:10)
[2019-03-12 09:13] LABS: HEMATOCRIT 36.3 % (37.0-47.0)
[2019-03-12 09:18] VITALS: BP 90/39; PULSE 93; TEMP 97.7
--- NOTE | 2019-03-12 10:48 | NUR ---
Patient was sleeping.
[2019-03-12 12:55] VITALS: BP 106/47; PULSE 88; TEMP 98.6
--- NOTE | 2019-03-12 15:30 | NUR ---
Right pain relieved with prn Ultram. Transfers well with knee scooter, NWB right leg. Alert. VSS. Prescriptions and home instructions given. Dismissed to home per w/c with family.
== END 2019-03-12 15:30 | disposition home or self-care (01) | DRG 469 ==
LOC: JCC 03-10 09:45
PROVIDERS: Physician Assistant; ADMIT Orthopaedic Surgery
PROC: 0SRF0J9 Replacement of Right Ankle Joint with Synthetic Substitute, Cemented, Open Approach (ICD-10-PCS; principal; 2019-03-10 12:00)
DX: M19.071 Primary osteoarthritis, right ankle and foot (principal); F32.9 Major depressive disorder, single episode, unspecified; F41.9 Anxiety disorder, unspecified; G43.909 Migraine, unspecified, not intractable, without status migrainosus
CPT/HCPCS: 99223; 99232-AI; A4314; A9284; C1713; C1776; J1940; J2250; J2310; J2405; J2704; J2795; J3010; J7120; Q9967

== ENCOUNTER → 2019-02-23 | Outpatient (CLI) | payer BC | LOC: MHCPAIN 07:57 | DX: G89.29 Other chronic pain (principal); M47.817 Spondylosis without myelopathy or radiculopathy, lumbosacral region; M54.16 Radiculopathy, lumbar region; M53.3 Sacrococcygeal disorders, not elsewhere classified | CPT/HCPCS: G0463 ==

== ENCOUNTER → 2019-02-24 | Outpatient (CLI) | payer BC ==
[2019-02-24 10:40] LABS: COLLECTION METHOD CLEAN CATCH
[2019-02-24 10:47] LABS: BASO # 0.1 (0.0-0.2); BASO % 0.6 % (0.0-2.0); EOS # 0.2 (0.0-0.7); EOS % 1.7 % (0-4.0); GRAN # 6.2 (1.4-6.5); GRAN % 66.2 % (42.2-75.2); HEMATOCRIT 43.4 % (37.0-47.0); HEMOGLOBIN 14.1 g/dl (12.5-16.0); LYMPH # 2.5 (1.2-3.4); LYMPH % 26.5 % (20.0-51.0); MEAN CELL VOLUME 99 fl (80.0-100.0); MEAN CORPUSCULAR HEMOGLOBIN 32 pg (27.0-31.0); MEAN CORPUSCULAR HGB CONC 33 g/dl (33.0-37.0); MEAN PLATELET VOLUME 9.4 fl (7.4-10.4); MONO # 0.4 (0.1-0.6); MONO % 4.6 % (1.7-9.3); PLATELET COUNT 256 K/mm3 (130-400); RED BLOOD COUNT 4.38 M/mm3 (4.10-5.30); REDCELL DISTRIBUTION WIDTH-CV 15.1 % (11.5-14.5)
[2019-02-24 10:52] LABS: PH 6 (5-8); PROTHROMBIN TIME 12.1 SECONDS (9.7-12.8); SQUAMOUS EPITHELIAL 0-2 /hpf; URINE APPEARANCE Clear; URINE BACTERIA Rare /hpf; URINE BILIRUBIN Negative (NEGATIVE); URINE BLOOD 1+ (NEGATIVE); URINE COLOR Yellow; URINE GLUCOSE Negative (NEGATIVE); URINE KETONE Negative (NEGATIVE); URINE LEUKOCYTE ESTERASE Negative (NEGATIVE); URINE NITRATE Negative (NEGATIVE); URINE PROTEIN(semi-quant) Negative (NEGATIVE); URINE RBC 0-2 /hpf; URINE UROBILINOGEN Negative (NEGATIVE)
[2019-02-24 10:58] LABS: ALBUMIN 3.8 gm/dL (3.5-5.0); BILIRUBIN,TOTAL 0.4 mg/dL (0.0-1.0); CALCIUM 9.2 mg/dL (8.4-10.2); CREATININE, serum 0.75 (0.52-1.25); POTASSIUM 4.3 mmol/L (3.4-5.0); TOTAL PROTEIN 7.3 gm/dL (6.4-8.2)
== END ==
LOC: COL.LAB 09:41
PROVIDERS: Internal Medicine
DX: Z01.818 Encounter for other preprocedural examination (principal); E88.81 Metabolic syndrome and other insulin resistance; G47.33 Obstructive sleep apnea (adult) (pediatric); E53.8 Deficiency of other specified B group vitamins

== ENCOUNTER → 2019-03-07 | Outpatient (CLI) | payer BC ==
[2019-03-07 08:16] LABS: COLLECTION METHOD CLEAN CATCH
[2019-03-07 09:29] LABS: MUCOUS Present /lpf; PH 5 (5-8); SQUAMOUS EPITHELIAL None Seen /hpf; URINE APPEARANCE Clear; URINE BACTERIA None Seen /hpf; URINE BILIRUBIN Negative (NEGATIVE); URINE BLOOD 1+ (NEGATIVE); URINE COLOR Straw; URINE GLUCOSE Negative (NEGATIVE); URINE KETONE Negative (NEGATIVE); URINE LEUKOCYTE ESTERASE Negative (NEGATIVE); URINE NITRATE Negative (NEGATIVE); URINE PROTEIN(semi-quant) Negative (NEGATIVE); URINE RBC 0-2 /hpf; URINE UROBILINOGEN Negative (NEGATIVE)
== END ==
LOC: COL.LAB 07:48
PROVIDERS: Orthopaedic Surgery
DX: Z01.812 Encounter for preprocedural laboratory examination (principal)

== ENCOUNTER 2019-03-08 14:00 | Outpatient (RCR) | payer BC ==
[2019-03-10] MEDS ORDERED: ATIVAN 1MG T1 MG/TAB PO (10:17)
[2019-03-10] MEDS ORDERED: NEURONTIN300 MG/CAP PO (10:20)
[2019-03-10] MEDS ORDERED: NEURONTIN600 MG/TAB PO (10:20)
[2019-03-10] MEDS ORDERED: STOOL SOFTENER100 M2 PO (10:21)
[2019-03-10] MEDS ORDERED: FOLIC ACID 40400 MCG PO (10:22)
[2019-03-10] MEDS ORDERED: TYLENOL 8 HR PO (10:23)
[2019-03-11] MEDS ORDERED: PERCOCET 325 MG1 TA3 PO (06:17)
[2019-03-11] MEDS ORDERED: ASPI325T6 PO (06:21)
[2019-03-11] MEDS ORDERED: CELEBREX 200MG200 MG PO (07:31)
[2019-03-11] MEDS ORDERED: MINOCYCLIN100 MG/CAP PO (07:32)
[2019-03-12] MEDS ORDERED: ULTRAM 50MG TAB50 MG PO (09:10)
[2019-03-12] MEDS ORDERED: TYLENOL 325MG325 MG PO (09:10)
== END 2019-03-15 09:27 | disposition home or self-care (01) ==
LOC: WSPT 14:00
DX: Z01.818 Encounter for other preprocedural examination (principal)

== ENCOUNTER → 2019-05-12 | Outpatient (CLI) | payer BC ==
[~2019-05-12] MED LIST changes: +CELEBREX 200MG200 MG PO; +MINOCYCLIN100 MG/CAP PO; +NEURONTIN300 MG/CAP PO; +NEURONTIN600 MG/TAB PO; +PERCOCET 325 MG1 TA3 PO; +TYLENOL 325MG325 MG PO; +TYLENOL 8 HR PO
== END ==
LOC: BHSO 09:40
DX: F31.81 Bipolar II disorder (principal)
CPT/HCPCS: G0463

== ENCOUNTER 2019-05-30 15:45 | Outpatient (RCR) | payer BC | END 2019-06-22 | disposition home or self-care (01) | LOC: WSPT | DX: Z96.661 Presence of right artificial ankle joint (principal) | CPT/HCPCS: G0283-GP ==

== ENCOUNTER → 2019-06-08 | Outpatient (CLI) | payer BC | LOC: MHCPAIN 08:30 | DX: G89.29 Other chronic pain (principal); M47.817 Spondylosis without myelopathy or radiculopathy, lumbosacral region; M54.16 Radiculopathy, lumbar region; M53.3 Sacrococcygeal disorders, not elsewhere classified | CPT/HCPCS: G0463 ==

== ENCOUNTER → 2019-06-23 | Outpatient (CLI) | payer BC | LOC: MHCPAIN 12:45 | DX: M47.817 Spondylosis without myelopathy or radiculopathy, lumbosacral region (principal); M54.16 Radiculopathy, lumbar region | CPT/HCPCS: J1100; Q9967 ==

== ENCOUNTER → 2019-07-06 | Outpatient (CLI) | payer BC ==
[~2019-07-06] MED LIST changes: +LEVAQUIN 5500 MG/TA1 PO; +PREDNISONE10 MG PO
== END ==
LOC: MHCPAIN 15:09
DX: M47.817 Spondylosis without myelopathy or radiculopathy, lumbosacral region (principal); M53.3 Sacrococcygeal disorders, not elsewhere classified
CPT/HCPCS: G0463

== ENCOUNTER 2019-08-10 15:30 | Outpatient (RCR) | payer BC ==
[~2019-08-10 15:30] MED LIST changes: -LEVAQUIN 5500 MG/TA1 PO; -PREDNISONE10 MG PO
[2019-09-13] MEDS ORDERED: LEVAQUIN 5500 MG/TA1 PO (02:15)
[2019-09-13] MEDS ORDERED: PREDNISONE10 MG PO (02:15)
== END 2019-10-04 | disposition home or self-care (01) ==
LOC: WSPT
DX: Z96.661 Presence of right artificial ankle joint (principal)

== ENCOUNTER → 2019-08-15 | Outpatient (CLI) | payer BC ==
[~2019-08-15] MED LIST changes: +LEVAQUIN 5500 MG/TA1 PO; +PREDNISONE10 MG PO
== END ==
LOC: MHCPAIN 13:02
DX: M12.88 Other specific arthropathies, not elsewhere classified, other specified site (principal); M54.5 Low back pain

== ENCOUNTER → 2019-08-31 | Outpatient (CLI) | payer BC | LOC: MHCPAIN 08:02 | DX: G89.29 Other chronic pain (principal); M53.3 Sacrococcygeal disorders, not elsewhere classified | CPT/HCPCS: G0463 ==

== ENCOUNTER 2019-09-13 00:01 | Emergency (ER) | payer BC ==
[~2019-09-13] VITALS: Ht 162.6 cm; Wt 110.0 kg
[~2019-09-13 00:01] MED LIST changes: -LEVAQUIN 5500 MG/TA1 PO; -PREDNISONE10 MG PO
[2019-09-13 00:11] VITALS: TEMP 98.3
[2019-09-13] MEDS ORDERED: LEVAQUIN 5500 MG/TA1 PO (02:15)
[2019-09-13] MEDS ORDERED: PREDNISONE10 MG PO (02:15)
[2019-09-13 03:34] VITALS: BP 114/69; PULSE 78
== END 2019-09-13 03:34 | disposition home or self-care (01) ==
LOC: COL.ER 00:01
DX: G43.909 Migraine, unspecified, not intractable, without status migrainosus (principal); F17.210 Nicotine dependence, cigarettes, uncomplicated
CPT/HCPCS: J1200; J1885; J2270; J2550; J7030

== ENCOUNTER → 2019-09-16 | Outpatient (CLI) | payer BC ==
[~2019-09-16] MED LIST changes: +LEVAQUIN 5500 MG/TA1 PO; +PREDNISONE10 MG PO
== END ==
LOC: BHSO 13:59
DX: F31.81 Bipolar II disorder (principal)
CPT/HCPCS: G0463

== ENCOUNTER → 2019-09-29 | Outpatient (CLI) | payer BC ==
[~2019-09-29] MED LIST changes: +ATARAX 25MG25 MG/TAB PO; +CLEOCIN HCL300 MG PO; +GEODON60 MG PO; +INDERAL40 MG PO; +MAGNESIUM250 M1 PO; +NATURAL IRON65 MG; +TYLENOL 500MG500 MG
== END ==
LOC: MHCPAIN 10:02
DX: M54.5 Low back pain (principal); M53.3 Sacrococcygeal disorders, not elsewhere classified
CPT/HCPCS: J1100; J2250; J3010

== ENCOUNTER 2019-10-06 07:27 | Emergency (ER) | payer BC ==
[~2019-10-06] VITALS: Ht 162.6 cm; Wt 111.4 kg
[~2019-10-06 07:27] MED LIST changes: -ATARAX 25MG25 MG/TAB PO; -CLEOCIN HCL300 MG PO; -GEODON60 MG PO; -INDERAL40 MG PO; -MAGNESIUM250 M1 PO; -NATURAL IRON65 MG; -TYLENOL 500MG500 MG
[2019-10-06 07:30] VITALS: TEMP 98.6
[2019-10-06 11:06] VITALS: BP 102/41; PULSE 83
[2019-10-06] MEDS ORDERED: CLEOCIN HCL300 MG PO (11:07)
== END 2019-10-06 11:06 | disposition home or self-care (01) ==
LOC: COL.ER 07:27
DX: R51 Headache (principal); F31.9 Bipolar disorder, unspecified; F17.210 Nicotine dependence, cigarettes, uncomplicated; Z90.710 Acquired absence of both cervix and uterus; Z86.69 Personal history of other diseases of the nervous system and sense organs; Z79.52 Long term (current) use of systemic steroids
CPT/HCPCS: J1100; J1200; J1630; J2405; J2765; J3475; J7040

== ENCOUNTER 2019-10-10 02:54 | Emergency (ER) | payer BC ==
[~2019-10-10] VITALS: Ht 162.6 cm; Wt 110.0 kg
[~2019-10-10 02:54] MED LIST changes: +CLEOCIN HCL300 MG PO
[2019-10-10 03:05] VITALS: BP 114/60; TEMP 98.4
[2019-10-10] MEDS ORDERED: TYLENOL 500MG500 MG (03:09)
[2019-10-10] MEDS ORDERED: NATURAL IRON65 MG (03:09)
[2019-10-10] MEDS ORDERED: ATARAX 25MG25 MG/TAB PO (03:10)
[2019-10-10] MEDS ORDERED: GEODON60 MG PO (03:10)
[2019-10-10] MEDS ORDERED: INDERAL40 MG PO (03:11)
[2019-10-10] MEDS ORDERED: MAGNESIUM250 M1 PO (03:11)
[2019-10-10 08:25] VITALS: PULSE 70
== END 2019-10-10 08:25 | disposition home or self-care (01) ==
LOC: COL.ER 02:54
DX: G43.909 Migraine, unspecified, not intractable, without status migrainosus (principal); F31.9 Bipolar disorder, unspecified; F17.210 Nicotine dependence, cigarettes, uncomplicated
CPT/HCPCS: J0595; J1200; J1790; J1885; J2765; J7030

== ENCOUNTER → 2019-10-28 | Outpatient (CLI) | payer BC ==
[~2019-10-28] MED LIST changes: +ATARAX 25MG25 MG/TAB PO; +GEODON60 MG PO; +INDERAL40 MG PO; +MAGNESIUM250 M1 PO; +NATURAL IRON65 MG; +TYLENOL 500MG500 MG
[2019-10-28 13:15] LABS: BASO # 0.1 (0.0-0.2); BASO % 0.6 % (0.0-2.0); EOS # 0.3 (0.0-0.7); EOS % 3.2 % (0-4.0); GRAN # 6.5 (1.4-6.5); GRAN % 60.4 % (42.2-75.2); HEMATOCRIT 42.3 % (37.0-47.0); HEMOGLOBIN 13.6 g/dl (12.5-16.0); LYMPH # 3.3 (1.2-3.4); MEAN CELL VOLUME 98 fl (80.0-100.0); MEAN CORPUSCULAR HEMOGLOBIN 31 pg (27.0-31.0); MEAN CORPUSCULAR HGB CONC 32 g/dl (33.0-37.0); MEAN PLATELET VOLUME 9.5 fl (7.4-10.4); MONO # 0.5 (0.1-0.6); MONO % 4.5 % (1.7-9.3); PLATELET COUNT 314 K/mm3 (130-400); RED BLOOD COUNT 4.34 M/mm3 (4.10-5.30); REDCELL DISTRIBUTION WIDTH-CV 13.2 % (11.5-14.5)
[2019-10-28 13:26] LABS: ALBUMIN 3.8 gm/dL (3.5-5.0); BILIRUBIN,TOTAL 0.3 mg/dL (0.0-1.0); CALCIUM 9.2 mg/dL (8.4-10.2); CHOLESTEROL RISK RATIO 5.3; CREATININE, serum 0.71 (0.52-1.25); POTASSIUM 4.4 mmol/L (3.4-5.0); TOTAL PROTEIN 7.1 gm/dL (6.4-8.2)
[2019-10-28 13:55] LABS: THYROID STIMULATING HORMONE 3.33 uIU/mL (0.465-4.680)
[2019-10-29 04:52] LABS: FOLATE (FOLIC ACID) >20.0 ng/mL (>=4.0)
== END ==
LOC: COL.LAB 12:33
PROVIDERS: Internal Medicine
DX: Z00.00 Encounter for general adult medical examination without abnormal findings (principal); Z13.220 Encounter for screening for lipoid disorders; Z13.29 Encounter for screening for other suspected endocrine disorder; D50.9 Iron deficiency anemia, unspecified; D52.9 Folate deficiency anemia, unspecified; E87.6 Hypokalemia; E88.81 Metabolic syndrome and other insulin resistance

== ENCOUNTER 2020-01-03 23:02 | Emergency (ER) | payer BC ==
[2020-01-03 23:24] VITALS: BP 133/64; TEMP 98.3
[2020-01-04 00:22] VITALS: PULSE 64
== END 2020-01-04 00:22 | disposition home or self-care (01) ==
LOC: COL.ER 23:02
DX: S20.211A Contusion of right front wall of thorax, initial encounter (principal); S90.01XA Contusion of right ankle, initial encounter; G43.909 Migraine, unspecified, not intractable, without status migrainosus; Z79.891 Long term (current) use of opiate analgesic; W01.0XXA Fall on same level from slipping, tripping and stumbling without subsequent striking against object, initial encounter; Y93.01 Activity, walking, marching and hiking; Y99.0 Civilian activity done for income or pay

== ENCOUNTER 2020-01-14 23:37 | Inpatient (IN) | payer BC ==
[~2020-01-14] VITALS: Ht 162.6 cm; Wt 118.4 kg
[~2020-01-14 23:37] MED LIST changes: -TYLENOL 500MG500 MG; +TYLENOL 500MG500 MG PO
[2020-01-15] VITALS (253 sets, daily range): BP systolic 116–163; BP diastolic 65–87; PULSE 64–92; TEMP 98.1–99.6; O2SAT 87–98
[2020-01-15 00:52] LABS: BASO % 0.3 % (0.0-2.0); EOS # 0.1 (0.0-0.7); EOS % 0.7 % (0-4.0); GRAN # 7.9 (1.4-6.5); GRAN % 73.5 % (42.2-75.2); HEMATOCRIT 39.3 % (37.0-47.0); HEMOGLOBIN 12.7 g/dl (12.5-16.0); LYMPH # 2.2 (1.2-3.4); LYMPH % 20.7 % (20.0-51.0); MEAN CELL VOLUME 97 fl (80.0-100.0); MEAN CORPUSCULAR HEMOGLOBIN 31 pg (27.0-31.0); MEAN CORPUSCULAR HGB CONC 32 g/dl (33.0-37.0); MEAN PLATELET VOLUME 9.6 fl (7.4-10.4); MONO # 0.5 (0.1-0.6); MONO % 4.6 % (1.7-9.3); PLATELET COUNT 246 K/mm3 (130-400); RED BLOOD COUNT 4.04 M/mm3 (4.10-5.30); REDCELL DISTRIBUTION WIDTH-CV 12.2 % (11.5-14.5)
[2020-01-15 01:02] LABS: INR 1.2 (0.8-3.0); PROTHROMBIN TIME 13.3 SECONDS (9.7-12.8)
[2020-01-15 01:09] LABS: ALBUMIN 3.9 gm/dL (3.5-5.0); BILIRUBIN,TOTAL 0.4 mg/dL (0.0-1.0); CALCIUM 9.1 mg/dL (8.4-10.2); CREATININE, serum 0.65 (0.52-1.25); TOTAL PROTEIN 7.5 gm/dL (6.4-8.2)
[2020-01-15 01:11] LABS: POTASSIUM 2.5 mmol/L (3.4-5.0)
[2020-01-15 01:21] LABS: TROPONIN-I 0.537 ng/mL (0.000-0.035)
[2020-01-15 01:41] LABS: MAGNESIUM 2.2 mg/dL (1.6-2.3)
--- NOTE | 2020-01-15 02:35 | NUR ---
Received report from RAEANN Pelayo.
--- NOTE | 2020-01-15 03:00 | NUR ---
Patient arrives to ICU room 7 via ED stretcher. Patient is alert and oriented x 4, she denies any pain or discomfort, vitals within normal limits. She arrives on 2L oxygen via nasal cannula. Patient able to ambulate to toilet with SBA. UA sent to the lab. Hospitalist aware of patient's arrival. Will continue to monitor.
[2020-01-15 03:18] LABS: TSH w REFLEX 1.09 uIU/mL (0.465-4.680)
[2020-01-15] MEDS ORDERED: RISPERDAL2 MG PO (03:56)
[2020-01-15] MEDS ORDERED: BELSOMRA20 MG PO (03:58)
[2020-01-15 04:10] LABS: COLLECTION METHOD CLEAN CATCH
[2020-01-15 04:21] LABS: CHOLESTEROL RISK RATIO 4.9
[2020-01-15 04:31] LABS: TRICYCLIC ANTIDEPRESS URINE NEGATIVE
[2020-01-15 04:35] LABS: MUCOUS Present /lpf; PH 6 (5-8); SQUAMOUS EPITHELIAL 0-2 /hpf; URINE APPEARANCE Clear; URINE BACTERIA None Seen /hpf; URINE BILIRUBIN Negative (NEGATIVE); URINE BLOOD 2+ (NEGATIVE); URINE COLOR Yellow; URINE GLUCOSE Negative (NEGATIVE); URINE KETONE Negative (NEGATIVE); URINE LEUKOCYTE ESTERASE Negative (NEGATIVE); URINE NITRATE Negative (NEGATIVE); URINE PROTEIN(semi-quant) Negative (NEGATIVE); URINE RBC 0-2 /hpf; URINE UROBILINOGEN Negative (NEGATIVE)
[2020-01-15 04:43] LABS: TROPONIN-I 3 HR POST INITIAL 0.469 ng/mL (0.000-0.034)
[2020-01-15 07:33] LABS: BASO % 0.3 % (0.0-2.0); EOS # 0.1 (0.0-0.7); EOS % 1.2 % (0-4.0); HEMATOCRIT 34.5 % (37.0-47.0); HEMOGLOBIN 11.6 g/dl (12.5-16.0); LYMPH # 2.2 (1.2-3.4); LYMPH % 22.2 % (20.0-51.0); MEAN CELL VOLUME 94 fl (80.0-100.0); MEAN CORPUSCULAR HEMOGLOBIN 32 pg (27.0-31.0); MEAN CORPUSCULAR HGB CONC 34 g/dl (33.0-37.0); MEAN PLATELET VOLUME 9.2 fl (7.4-10.4); MONO # 0.5 (0.1-0.6); MONO % 5.1 % (1.7-9.3); PLATELET COUNT 199 K/mm3 (130-400); RED BLOOD COUNT 3.67 M/mm3 (4.10-5.30); REDCELL DISTRIBUTION WIDTH-CV 12.2 % (11.5-14.5)
--- NOTE | 2020-01-15 08:00 | NUR ---
Shift assessment complete at this time. Plan of care reviewed at bedside with patient. Additional time taken to address any other needs or concerns. Vitals stable at this time. Pt denies pain or any other discomforts. Bed in low position, call light within reach, will continue to monitor.
[2020-01-15 08:01] LABS: CALCIUM 8.3 mg/dL (8.4-10.2); CREATININE, serum 0.56 (0.52-1.25)
[2020-01-15 08:03] LABS: POTASSIUM 2.8 mmol/L (3.4-5.0)
[2020-01-15 10:07] LABS: MAGNESIUM 2.2 mg/dL (1.6-2.3)
[2020-01-15 10:09] LABS: POTASSIUM 2.6 mmol/L (3.4-5.0)
[2020-01-15 10:20] LABS: TROPONIN-I 6 HR POST INITIAL 0.255 ng/mL (0.000-0.034)
[2020-01-15 10:21] LABS: ARTERIAL BLD GAS O2 SATURATION 93.1 % (92-100); ARTERIAL BLD GAS TCO2 CT 36.5; ARTERIAL BLOOD GAS BASE EXCESS 10.1 (-2-2); ARTERIAL BLOOD GAS HCO3 35.1 meq/L (22-26); ARTERIAL BLOOD GAS PCO2 48.6 mmHg (35-45); ARTERIAL BLOOD GAS PO2 61.4 mmHg (80-100); ARTERIAL BLOOD GAS pH 7.48 (7.35-7.45)
--- NOTE | 2020-01-15 12:00 | NUR ---
Pt resting comfortably in bed. Denies pain or any other discomforts. Bed in low position, call light within reach, will continue to monitor. Vitals stable.
[2020-01-15 13:49] LABS: FOLATE (FOLIC ACID) 16.4 ng/mL (7.0-31.4)
--- NOTE | 2020-01-15 21:39 | NUR ---
PT IN BED WITH BED FLAT AND CPAP ON FOR SLEEP. PT HAS C/O PAIN IN LOWER BACK RATED AT A 5/10. TRAMADOL GIVEN FOR PAIN. PT HAS NO FURTHER NEEDS CALL LIGHT WITHIN REACH.
[2020-01-15 22:32] LABS: CALCIUM 8.3 mg/dL (8.4-10.2); CREATININE, serum 0.59 (0.52-1.25); POTASSIUM 3.2 mmol/L (3.4-5.0)
[2020-01-16] VITALS (12 sets, daily range): BP systolic 101–125; BP diastolic 51–63; PULSE 65–84; TEMP 97.9–98.5
--- NOTE | 2020-01-16 06:12 | NUR ---
PT HAD SLEPT WITH CPAP ON DURING THE NIGHT, BUT CLOSER TO MORNING PT WANTED TO SIT IN RECLINER. PT'S O2 SATS ON RA WENT DOWN TO 85%. PT WAS PLACED ON 2L/NC AND O2 SATS WENT BACK UP TO 96%. PT HAD SOME C/O BACK PAIN RATED AT A 5/10, GAVE TRAMADOL FOR PAIN. NO OTHER ISSUES VOICED OR NOTED. PT HAS CALL LIGHT WITHIN REACH.
--- NOTE | 2020-01-16 09:36 | NUR ---
ROMAINE met with the patient to complete initial intake. The patient lives in [place] with her roommate, Doretha. The patient has a CPAP and is independent with ADLs. The patient's PCP is Dr. Sylvia Vela and patient receives medications from [facility] pharmacy with no difficulties. The patient does not have advanced directives in the EMR but was interested in a DPOA-HC form. Form provided. The patient plans to return home at discharge. There are no additional needs at this time.
--- NOTE | 2020-01-16 10:15 | NUR ---
Patient is going down for Amanda/EEG/MRI/Carotid doppler at this time
[2020-01-16 10:18] LABS: ALBUMIN 3.5 gm/dL (3.5-5.0); BILIRUBIN,TOTAL 0.6 mg/dL (0.0-1.0); CALCIUM 8.5 mg/dL (8.4-10.2); CREATININE, serum 0.6 (0.52-1.25); POTASSIUM 3.1 mmol/L (3.4-5.0)
[2020-01-17 03:18] VITALS: BP 130/58; PULSE 73; TEMP 98.1
--- NOTE | 2020-01-17 05:58 | NUR ---
PATIENT HAS SLEPT THROUGH THE NIGHT. PATIENT DID RECEIVE TRAMADOL AT [facility]. DENIED ANY PAIN FOR THE REST OF THE SHIFT. PATIENT ENJOYS DRINKING PEPSI. WHEN CHECKING ON HER THIS MORNING AND TAKING HER MORNING MEDICATIONS TO HER SHE WAS VISITING ON THE PHONE. PATIENT HAS BEEN ALERT AND ORIENTATED DURING MY SHIFT. PATIENT DENIES ANY NEEDS AT THIS TIME. WILL REPORT OFF TO DAY SHIFT.
[2020-01-17 07:20] LABS: BASO % 0.2 % (0.0-2.0); EOS # 0.2 (0.0-0.7); EOS % 2.4 % (0-4.0); GRAN # 6.3 (1.4-6.5); GRAN % 72.6 % (42.2-75.2); HEMOGLOBIN 11.2 g/dl (12.5-16.0); LYMPH # 1.8 (1.2-3.4); LYMPH % 21.1 % (20.0-51.0); MEAN CELL VOLUME 95 fl (80.0-100.0); MEAN CORPUSCULAR HEMOGLOBIN 31 pg (27.0-31.0); MEAN CORPUSCULAR HGB CONC 32 g/dl (33.0-37.0); MEAN PLATELET VOLUME 8.6 fl (7.4-10.4); MONO # 0.3 (0.1-0.6); MONO % 3.4 % (1.7-9.3); PLATELET COUNT 200 K/mm3 (130-400); RED BLOOD COUNT 3.67 M/mm3 (4.10-5.30)
[2020-01-17 07:30] LABS: HEMATOCRIT 34.9 % (37.0-47.0)
[2020-01-17 07:39] LABS: CALCIUM 8.4 mg/dL (8.4-10.2); CREATININE, serum 0.6 (0.52-1.25); POTASSIUM 3.2 mmol/L (3.4-5.0)
[2020-01-17 07:41] VITALS: BP 120/66; PULSE 72; TEMP 98
--- NOTE | 2020-01-17 08:27 | NUR ---
pt in bed, claiming pain 6/10 low back, brought in pain medication for her. pt has no other complaints, medications given. table at bedside, fresh ice water brought in, no other needs at this time.
--- NOTE | 2020-01-17 08:29 | NUR ---
report given to RAEANN Villa
--- NOTE | 2020-01-17 10:37 | NUR ---
SW attended clinical rounds with the team. After rounds SW met with the patient to discuss the DPOA-HC. The patient completed the form and designated her son, Alan ([phone]) and her daughter, Leslie ([phone]). ROMAINE and the patient's nurse witnessed. A copy was placed in the chart and the original and copies were provided to the patient.
--- NOTE | 2020-01-17 10:53 | NUR ---
Patient is alert and oriented. pain at 3/10. breath sound in all lung field are clear. K+ LEVEL this morning is 3.2. Potassium is been replaced.
[2020-01-17 11:52] VITALS: BP 112/87; PULSE 74; TEMP 98.1
[2020-01-17] MEDS ORDERED: K-DUR 10 MEQ T10 MEQ PO (12:00)
--- NOTE | 2020-01-17 14:04 | NUR ---
The patient is to discharge home today, 01/16 with her roommate. There are no additional needs.
--- NOTE | 2020-01-17 15:37 | NUR ---
patient is discharged with new order for potassium 10mEq, information about future appointment with neurologist, Internal medicine, and asset protection officer. INT discontinued. patient friend drove patient home.
[2020-01-17 16:17] VITALS: BP 124/82; PULSE 72; TEMP 98.8
== END 2020-01-17 17:00 | disposition home or self-care (01) | DRG 947 ==
LOC: COL.ER 23:37 → MEDICAL 01-15 01:30 → ICU 01-15 01:30 → MEDICAL 01-15 13:12
PROVIDERS: Emergency Medicine; Physician Assistant; Student in an Organized Health Care Education/Training Program; ADMIT Hospitalist
DX: R41.82 Altered mental status, unspecified (principal); I21.A1 Myocardial infarction type 2; E87.3 Alkalosis; G47.33 Obstructive sleep apnea (adult) (pediatric); I51.89 Other ill-defined heart diseases; M19.90 Unspecified osteoarthritis, unspecified site; E87.6 Hypokalemia; D50.9 Iron deficiency anemia, unspecified; G43.909 Migraine, unspecified, not intractable, without status migrainosus; F31.9 Bipolar disorder, unspecified; N39.3 Stress incontinence (female) (male); G25.81 Restless legs syndrome; E78.5 Hyperlipidemia, unspecified; F41.9 Anxiety disorder, unspecified; G89.29 Other chronic pain; M54.5 Low back pain; G47.00 Insomnia, unspecified; K59.09 Other constipation; F17.210 Nicotine dependence, cigarettes, uncomplicated; Z79.1 Long term (current) use of non-steroidal anti-inflammatories (NSAID); Z79.891 Long term (current) use of opiate analgesic; Z99.81 Dependence on supplemental oxygen; Z91.81 History of falling; Z90.710 Acquired absence of both cervix and uterus; Z96.653 Presence of artificial knee joint, bilateral; Z88.0 Allergy status to penicillin; Z88.5 Allergy status to narcotic agent
CPT/HCPCS: 99223-AI; 99233-AI; 99239; A9500; A9585; J1650; J2785; J3480

== ENCOUNTER → 2020-01-25 | Outpatient (CLI) | payer BC ==
[~2020-01-25] MED LIST changes: +BELSOMRA20 MG PO; +K-DUR 10 MEQ T10 MEQ PO; +RISPERDAL2 MG PO
== END ==
LOC: BHSO 08:22
DX: F31.4 Bipolar disorder, current episode depressed, severe, without psychotic features (principal)

== ENCOUNTER → 2020-01-25 | Outpatient (CLI) | payer BC | LOC: MHCPAIN 12:31 | DX: M47.817 Spondylosis without myelopathy or radiculopathy, lumbosacral region (principal); M54.5 Low back pain; M53.3 Sacrococcygeal disorders, not elsewhere classified; G89.29 Other chronic pain | CPT/HCPCS: G0463 ==

== ENCOUNTER → 2020-01-26 | Outpatient (CLI) | payer BC ==
[2020-01-26 13:15] LABS: CREATININE, serum 0.8 (0.52-1.25); POTASSIUM 3.8 mmol/L (3.4-5.0)
== END ==
LOC: COL.LAB 12:37
PROVIDERS: Internal Medicine
DX: E87.6 Hypokalemia (principal)

== ENCOUNTER → 2020-02-10 | Outpatient (CLI) | payer BC | LOC: BHSO 10:21 | DX: F31.81 Bipolar II disorder (principal) | CPT/HCPCS: G0463 ==

== ENCOUNTER → 2020-02-16 | Outpatient (CLI) | payer BC ==
[2020-02-16 14:38] LABS: CALCIUM 9.2 mg/dL (8.4-10.2); CREATININE, serum 0.9 (0.52-1.25); POTASSIUM 3.9 mmol/L (3.4-5.0)
== END ==
LOC: COL.LAB 13:28
PROVIDERS: Internal Medicine
DX: E88.81 Metabolic syndrome and other insulin resistance (principal); E87.6 Hypokalemia

== ENCOUNTER → 2020-03-01 | Outpatient (CLI) | payer BC | LOC: MHCPAIN 13:47 | DX: M47.817 Spondylosis without myelopathy or radiculopathy, lumbosacral region (principal); M54.5 Low back pain; M53.3 Sacrococcygeal disorders, not elsewhere classified; G89.29 Other chronic pain | CPT/HCPCS: G0463; J2250; J3010 ==

== ENCOUNTER → 2020-03-20 | Outpatient (CLI) | payer BC | LOC: COL.RAD 08:48 | DX: M25.571 Pain in right ankle and joints of right foot (principal) | CPT/HCPCS: J3301; Q9967 ==

== ENCOUNTER → 2020-03-23 | Outpatient (CLI) | payer BC | LOC: MC.RAD 10:49 | DX: Z12.31 Encounter for screening mammogram for malignant neoplasm of breast (principal) ==

== ENCOUNTER → 2020-03-28 | Outpatient (CLI) | payer BC | LOC: BHSO 14:39 | DX: F31.81 Bipolar II disorder (principal) | CPT/HCPCS: G0463 ==

== ENCOUNTER → 2020-04-23 | Outpatient (CLI) | payer SELFPAY | LOC: MHCPAIN 09:06 | DX: M47.817 Spondylosis without myelopathy or radiculopathy, lumbosacral region (principal); M54.5 Low back pain; M53.3 Sacrococcygeal disorders, not elsewhere classified; G89.29 Other chronic pain | CPT/HCPCS: G0463 ==

== ENCOUNTER → 2020-04-24 | Outpatient (CLI) | payer SELFPAY ==
[2020-04-24 11:11] LABS: CALCIUM 9.4 mg/dL (8.4-10.2); CREATININE, serum 0.83 (0.52-1.25); POTASSIUM 4.2 mmol/L (3.4-5.0)
== END ==
LOC: COL.LAB 10:26
PROVIDERS: Internal Medicine
DX: E87.6 Hypokalemia (principal)

== ENCOUNTER → 2020-07-16 | Outpatient (CLI) | payer BC | LOC: MHCPAIN 10:39 | DX: M47.817 Spondylosis without myelopathy or radiculopathy, lumbosacral region (principal); M54.5 Low back pain; M79.2 Neuralgia and neuritis, unspecified; G89.29 Other chronic pain | CPT/HCPCS: G0463 ==

== ENCOUNTER → 2020-07-19 | Outpatient (CLI) | payer BC | LOC: MHCPAIN 12:26 | DX: M47.817 Spondylosis without myelopathy or radiculopathy, lumbosacral region (principal); M54.5 Low back pain | CPT/HCPCS: J2250; J3010 ==

== ENCOUNTER → 2020-09-06 | Outpatient (CLI) | payer BC | LOC: MHCPAIN 12:16 | DX: M47.817 Spondylosis without myelopathy or radiculopathy, lumbosacral region (principal); M54.5 Low back pain | CPT/HCPCS: J2250; J3010 ==

== ENCOUNTER → 2020-09-19 | Outpatient (CLI) | payer BC ==
[~2020-09-19] MED LIST changes: +ALDACTONE 25MG25 M1 PO; +ASPIRIN 81M81 MG/TA2 PO; +MELATONIN5 M1 SL; +NYSTATIN CREAM15 GM TP; +SEROQUEL 1100 MG/TAB PO
[2020-09-19 12:44] LABS: COLLECTION METHOD CLEAN CATCH
[2020-09-19 13:00] LABS: MUCOUS Present /lpf; PH 6 (5-8); SQUAMOUS EPITHELIAL 0-2 /hpf; URINE APPEARANCE Clear; URINE BACTERIA Rare /hpf; URINE BILIRUBIN Negative (NEGATIVE); URINE BLOOD Negative (NEGATIVE); URINE COLOR Straw; URINE GLUCOSE Negative (NEGATIVE); URINE KETONE Negative (NEGATIVE); URINE LEUKOCYTE ESTERASE Negative (NEGATIVE); URINE NITRATE Negative (NEGATIVE); URINE PROTEIN(semi-quant) Negative (NEGATIVE); URINE RBC 0-2 /hpf; URINE UROBILINOGEN Negative (NEGATIVE)
== END ==
LOC: COL.LAB 12:09
PROVIDERS: Internal Medicine
DX: Z01.812 Encounter for preprocedural laboratory examination (principal)

== ENCOUNTER 2020-09-20 05:15 | Day surgery (SDC) | payer BC ==
[~2020-09-20] VITALS: Ht 162.6 cm; Wt 109.2 kg
[2020-09-20] VITALS (8 sets, daily range): BP systolic 103–151; BP diastolic 63–84; PULSE 59–69; TEMP 97.8–98.2
[~2020-09-20 05:15] MED LIST changes: -ALDACTONE 25MG25 M1 PO; -ASPIRIN 81M81 MG/TA2 PO; -MELATONIN5 M1 SL; -NYSTATIN CREAM15 GM TP; -SEROQUEL 1100 MG/TAB PO
[2020-09-20] MEDS ORDERED: LAMICTAL 100MG100 MG PO (05:59)
[2020-09-20] MEDS ORDERED: ULTRAM 50MG TAB50 MG PO (06:01)
[2020-09-20] MEDS ORDERED: ASPIRIN 81M81 MG/TA2 PO (06:01)
[2020-09-20] MEDS ORDERED: SEROQUEL 1100 MG/TAB PO (06:02)
[2020-09-20] MEDS ORDERED: MELATONIN5 M1 SL (06:02)
[2020-09-20] MEDS ORDERED: ALDACTONE 25MG25 M1 PO (06:02)
[2020-09-20] MEDS ORDERED: NYSTATIN CREAM15 GM TP (06:03)
[2020-09-20] MEDS ORDERED: MOTRIN 200200 MG/TAB PO (06:03)
--- NOTE | 2020-09-20 08:15 | NUR ---
Patient returns to room 8 per cart from PACU accompanied by Marianne CARY. Silviaails up x2 and call light in reach. Foot of cart elevated and ice bag on the right ankle. Michelet wrap dressing with plaster splint in place. Toes warm and pink. Unable to wiggle toes due to block placed pre-op.
--- NOTE | 2020-09-20 08:30 | NUR ---
Continues to rest without complaints of pain or nausea. Foot of cart elevated.
--- NOTE | 2020-09-20 09:00 | NUR ---
Sipping on water without nausea.
--- NOTE | 2020-09-20 09:15 | NUR ---
Assisted up to the bathroom and uses knee scooter. Non weight bearing on the right leg. Voids and returns to room. Does well using scooter.
--- NOTE | 2020-09-20 09:25 | NUR ---
Resting on cart and right leg elevated. Ice on the right ankle and bulky dressing with posterior splint in place.
--- NOTE | 2020-09-20 09:45 | NUR ---
Tolerates toast and Sprite.
--- NOTE | 2020-09-20 10:15 | NUR ---
Resting without complaints of pain or nausea. States that she feels sleepy and wants to rest.
--- NOTE | 2020-09-20 11:10 | NUR ---
Awake and states that she is ready to go home. IV discontinued. Right lower extremity dressing clean and dry. Denies pain. States that the right leg remains numb. Instructed to keep the right leg elevated and ice bag in place.
--- NOTE | 2020-09-20 11:17 | NUR ---
Patient dismissed to home driven by friend and taken to the front door per wheelchair by Monroe CARY and assisted into vehicle and dismissed to home with instructions in hand.
== END 2020-09-20 11:17 | disposition home or self-care (01) ==
LOC: SDCO 05:15
DX: M65.9 Synovitis and tenosynovitis, unspecified (principal); G89.18 Other acute postprocedural pain; G89.28 Other chronic postprocedural pain; M19.90 Unspecified osteoarthritis, unspecified site; G47.33 Obstructive sleep apnea (adult) (pediatric); G43.909 Migraine, unspecified, not intractable, without status migrainosus; D64.9 Anemia, unspecified; R06.4 Hyperventilation; E66.9 Obesity, unspecified; F41.9 Anxiety disorder, unspecified; F31.9 Bipolar disorder, unspecified; F17.210 Nicotine dependence, cigarettes, uncomplicated; Z79.1 Long term (current) use of non-steroidal anti-inflammatories (NSAID); Z96.661 Presence of right artificial ankle joint; Z99.89 Dependence on other enabling machines and devices; Z88.0 Allergy status to penicillin; Z88.1 Allergy status to other antibiotic agents; Z88.8 Allergy status to other drugs, medicaments and biological substances; Z88.5 Allergy status to narcotic agent; Z79.899 Other long term (current) drug therapy; Z79.82 Long term (current) use of aspirin; Z20.828 Contact with and (suspected) exposure to other viral communicable diseases; Z82.79 Family history of other congenital malformations, deformations and chromosomal abnormalities
CPT/HCPCS: J0690; J2250; J2704; J7120

== ENCOUNTER → 2020-10-15 | Outpatient (CLI) | payer BC ==
[~2020-10-15] MED LIST changes: +ALDACTONE 25MG25 M1 PO; +ASPIRIN 81M81 MG/TA2 PO; +MELATONIN5 M1 SL; +NYSTATIN CREAM15 GM TP; +SEROQUEL 1100 MG/TAB PO
== END ==
LOC: MHCPAIN 10:31
DX: M79.2 Neuralgia and neuritis, unspecified (principal); M47.816 Spondylosis without myelopathy or radiculopathy, lumbar region; M53.3 Sacrococcygeal disorders, not elsewhere classified; G89.29 Other chronic pain
CPT/HCPCS: G0463

== ENCOUNTER → 2020-12-04 | Outpatient (CLI) | payer BC | LOC: MHCPAIN 10:59 | DX: M47.816 Spondylosis without myelopathy or radiculopathy, lumbar region (principal); M53.3 Sacrococcygeal disorders, not elsewhere classified; G89.29 Other chronic pain | CPT/HCPCS: G0463 ==

== ENCOUNTER 2021-01-09 08:45 | Outpatient (RCR) | payer BC | END 2021-01-10 | disposition home or self-care (01) | LOC: WSPT | DX: M76.71 Peroneal tendinitis, right leg (principal) ==

== ENCOUNTER 2021-01-21 09:45 | Outpatient (RCR) | payer BC | END 2021-02-28 08:40 | disposition home or self-care (01) | LOC: WSPT 09:45 | DX: Z98.890 Other specified postprocedural states (principal) ==

== ENCOUNTER → 2021-02-18 | Outpatient (CLI) | payer BC | LOC: COL.RAD 02-15 14:00 | DX: M25.571 Pain in right ankle and joints of right foot (principal) | CPT/HCPCS: J3301; Q9967 ==

== ENCOUNTER → 2021-02-28 | Outpatient (CLI) | payer BC | LOC: MHCPAIN 14:07 | DX: M47.816 Spondylosis without myelopathy or radiculopathy, lumbar region (principal); M79.2 Neuralgia and neuritis, unspecified; M54.5 Low back pain; M53.3 Sacrococcygeal disorders, not elsewhere classified | CPT/HCPCS: G0463 ==

== ENCOUNTER → 2021-05-07 | Outpatient (CLI) | payer BC | LOC: MHCPAIN 10:59 | DX: M47.816 Spondylosis without myelopathy or radiculopathy, lumbar region (principal); M79.2 Neuralgia and neuritis, unspecified; M53.3 Sacrococcygeal disorders, not elsewhere classified | CPT/HCPCS: G0463 ==

== ENCOUNTER → 2021-06-12 | Outpatient (CLI) | payer BC | LOC: MHCPAIN 10:53 | DX: M47.817 Spondylosis without myelopathy or radiculopathy, lumbosacral region (principal); M54.50 Low back pain, unspecified; M53.3 Sacrococcygeal disorders, not elsewhere classified | CPT/HCPCS: G0463; J1100; J2250; J3010 ==

== ENCOUNTER → 2021-07-31 | Outpatient (CLI) | payer BC | LOC: MHCPAIN 08:14 | DX: M47.896 Other spondylosis, lumbar region (principal); M53.3 Sacrococcygeal disorders, not elsewhere classified; M79.2 Neuralgia and neuritis, unspecified | CPT/HCPCS: G0463 ==

== ENCOUNTER 2021-09-07 15:11 | Emergency (ER) | payer BC ==
[~2021-09-07] VITALS: Ht 162.6 cm; Wt 104.5 kg
[2021-09-07 15:27] VITALS: BP 104/63; TEMP 97.8
[2021-09-07 16:57] VITALS: PULSE 79
== END 2021-09-07 16:57 | disposition home or self-care (01) ==
LOC: COL.ER 15:11
DX: S99.911A Unspecified injury of right ankle, initial encounter (principal); F17.210 Nicotine dependence, cigarettes, uncomplicated; Z88.6 Allergy status to analgesic agent; W01.0XXA Fall on same level from slipping, tripping and stumbling without subsequent striking against object, initial encounter; Y92.009 Unspecified place in unspecified non-institutional (private) residence as the place of occurrence of the external cause
CPT/HCPCS: J1885; L4386

== ENCOUNTER → 2021-09-30 | Outpatient (CLI) | payer BC ==
[2021-09-30 10:24] LABS: ALBUMIN 3.8 gm/dL (3.5-5.0); BILIRUBIN,TOTAL 0.3 mg/dL (0.2-1.2); CALCIUM 10.2 mg/dL (8.4-10.2); CREATININE, serum 0.83 mg/dL (0.57-1.11); POTASSIUM 4.8 mmol/L (3.5-4.5); TOTAL PROTEIN 7.8 gm/dL (6.2-8.1)
[2021-09-30 10:38] LABS: BASO # 0.1 K/mm3 (0.0-0.2); BASO % 0.5 % (0.0-2.0); EOS # 0.4 K/mm3 (0.0-0.7); EOS % 2.9 % (0.0-4.0); GRAN # 7.9 K/mm3 (1.4-6.5); GRAN % 65.6 % (42.2-75.2); HEMATOCRIT 42.9 % (37.0-47.0); HEMOGLOBIN 14.6 g/dl (12.5-16.0); LYMPH # 3.2 K/mm3 (1.2-3.4); LYMPH % 26.2 % (20.0-51.0); MEAN CELL VOLUME 98 fl (80.0-100.0); MEAN CORPUSCULAR HEMOGLOBIN 33 pg (27-31); MEAN CORPUSCULAR HGB CONC 34 g/dl (33.0-37.0); MEAN PLATELET VOLUME 10.2 fl (7.4-10.4); MONO # 0.6 K/mm3 (0.1-0.6); MONO % 4.6 % (1.7-9.3); PLATELET COUNT 283 K/mm3 (130-400); REDCELL DISTRIBUTION WIDTH-CV 13.6 % (11.5-14.5)
[2021-09-30 10:44] LABS: THYROID STIMULATING HORMONE 3.483 uIU/mL (0.350-4.940)
[2021-09-30 15:07] LABS: COLLECTION METHOD CLEAN CATCH
[2021-09-30 15:20] LABS: PH 6 (5-8); SQUAMOUS EPITHELIAL 0-2 /hpf (0-10); URINE APPEARANCE Hazy (CLEAR/HAZY); URINE BACTERIA None Seen /hpf (NONE SEEN); URINE BILIRUBIN Negative (NEGATIVE); URINE BLOOD 1+ (NEGATIVE); URINE COLOR Straw (YELLOW); URINE GLUCOSE Negative (NEGATIVE); URINE KETONE Negative (NEGATIVE); URINE LEUKOCYTE ESTERASE Negative (NEGATIVE); URINE NITRATE Negative (NEGATIVE); URINE PROTEIN(semi-quant) Negative (NEGATIVE); URINE RBC 0-2 /hpf (0-2); URINE UROBILINOGEN Negative (NEGATIVE)
== END ==
LOC: COL.LAB 08:57
DX: Z01.89 Encounter for other specified special examinations (principal)

== ENCOUNTER → 2021-10-21 | Outpatient (CLI) | payer BC ==
[~2021-10-21] MED LIST changes: +COLACE 100100 MG/CAP PO; +IMITREX 25MG TA25 MG PO; +LEXAPRO 10MG10 MG PO
== END ==
LOC: MHCPAIN 11:07
DX: M47.896 Other spondylosis, lumbar region (principal); M53.3 Sacrococcygeal disorders, not elsewhere classified; M54.50 Low back pain, unspecified; G89.29 Other chronic pain
CPT/HCPCS: G0463

== ENCOUNTER 2021-10-27 18:43 | Inpatient (IN) | payer BC ==
[~2021-10-27] VITALS: Ht 165.1 cm; Wt 106.4 kg
[~2021-10-27 18:43] MED LIST changes: -COLACE 100100 MG/CAP PO; -IMITREX 25MG TA25 MG PO; -LEXAPRO 10MG10 MG PO
[2021-10-27 19:18] LABS: BASO % 0.3 % (0.0-2.0); EOS % 0.3 % (0.0-4.0); GRAN # 10.8 K/mm3 (1.4-6.5); GRAN % 84.3 % (42.2-75.2); HEMATOCRIT 41.9 % (37.0-47.0); HEMOGLOBIN 14.5 g/dl (12.5-16.0); LYMPH # 1.5 K/mm3 (1.2-3.4); LYMPH % 11.4 % (20.0-51.0); MEAN CELL VOLUME 94 fl (80.0-100.0); MEAN CORPUSCULAR HEMOGLOBIN 33 pg (27-31); MEAN CORPUSCULAR HGB CONC 35 g/dl (33.0-37.0); MEAN PLATELET VOLUME 9.2 fl (7.4-10.4); MONO # 0.4 K/mm3 (0.1-0.6); MONO % 3.2 % (1.7-9.3); PLATELET COUNT 337 K/mm3 (130-400); RED BLOOD COUNT 4.44 M/mm3 (4.10-5.30); REDCELL DISTRIBUTION WIDTH-CV 12.3 % (11.5-14.5)
[2021-10-27 19:34] LABS: ALBUMIN 3.2 gm/dL (3.5-5.0); BILIRUBIN,TOTAL 0.6 mg/dL (0.2-1.2); CALCIUM 9.2 mg/dL (8.4-10.2); CREATININE, serum 0.66 mg/dL (0.57-1.11); POTASSIUM 3.5 mmol/L (3.5-4.5); TOTAL PROTEIN 7.4 gm/dL (6.2-8.1)
[2021-10-27 19:45] LABS: COLLECTION METHOD CATHETER
[2021-10-27 19:54] LABS: MUCOUS Present (NOT PRESENT); PH 7 (5-8); SQUAMOUS EPITHELIAL 0-2 /hpf (0-10); URINE APPEARANCE Clear (CLEAR/HAZY); URINE BACTERIA None Seen /hpf (NONE SEEN); URINE BILIRUBIN Negative (NEGATIVE); URINE BLOOD 1+ (NEGATIVE); URINE COLOR Yellow (YELLOW); URINE GLUCOSE Negative (NEGATIVE); URINE KETONE 2+ (NEGATIVE); URINE LEUKOCYTE ESTERASE Negative (NEGATIVE); URINE NITRATE Negative (NEGATIVE); URINE PROTEIN(semi-quant) Negative (NEGATIVE)
[2021-10-27 20:25] LABS: TRICYCLIC ANTIDEPRESS URINE NEGATIVE
[2021-10-27 20:27] LABS: ACETAMINOPHEN < 1.0 ug/mL (10-30); SALICYLATE < 5.0 mg/dL (15.0-30.0)
[2021-10-27 20:46] LABS: INR 1.1 (0.8-3.0); PROTHROMBIN TIME 12.3 SECONDS (9.7-12.8)
[2021-10-27 22:25] VITALS: O2SAT 99
[2021-10-27 22:26] VITALS: O2SAT 99
[2021-10-27 22:28] VITALS: O2SAT 100
[2021-10-27 22:31] VITALS: O2SAT 100
[2021-10-27 22:34] VITALS: O2SAT 100
[2021-10-27 23:28] LABS: CREATINE KINASE 477 U/L (29-168); PHOSPHOROUS 2.3 mg/dL (2.3-4.7)
[2021-10-27 23:36] LABS: ALCOHOL(ethanol),MEDICAL < 10 mg/dL (0-10)
[2021-10-27 23:48] LABS: TROPONIN-I < 0.010 ng/mL (0.00-0.033); TSH w REFLEX 0.517 uIU/mL (0.350-4.940)
[2021-10-28] VITALS (307 sets, daily range): BP systolic 103–162; BP diastolic 42–85; PULSE 54–99; TEMP 97–98.4; O2SAT 88–100
--- NOTE | 2021-10-28 07:15 | NUR ---
RECEIVED REPORT FROM RAEANN MARES. PT SLEEPING IN BED ON RA. VSS. SEE GTT FLOWSHEET. FC PATENT AND DRAINING TO GRAVITY. NOTED MITTS IN PLACE.
[2021-10-28 09:33] LABS: BASO % 0.2 % (0.0-2.0); EOS # 0.1 K/mm3 (0.0-0.7); EOS % 0.4 % (0.0-4.0); GRAN % 79.1 % (42.2-75.2); LYMPH # 1.7 K/mm3 (1.2-3.4); LYMPH % 14.8 % (20.0-51.0); MEAN CELL VOLUME 94 fl (80.0-100.0); MEAN CORPUSCULAR HGB CONC 35 g/dl (33.0-37.0); MEAN PLATELET VOLUME 9.1 fl (7.4-10.4); MONO # 0.6 K/mm3 (0.1-0.6); MONO % 5.1 % (1.7-9.3); PLATELET COUNT 241 K/mm3 (130-400); RED BLOOD COUNT 3.55 M/mm3 (4.10-5.30); REDCELL DISTRIBUTION WIDTH-CV 12.1 % (11.5-14.5)
[2021-10-28 09:34] LABS: HEMATOCRIT 33.2 % (37.0-47.0); HEMOGLOBIN 11.5 g/dl (12.5-16.0); MEAN CORPUSCULAR HEMOGLOBIN 32 pg (27-31)
[2021-10-28 09:48] LABS: ALANINE AMINOTRANSFERASE 60 U/L (0-55); ALBUMIN 2.4 gm/dL (3.5-5.0); ALKALINE PHOSPHATASE 191 U/L (40-150); ANION GAP 10 mmol/L (7-16); AST,SGOT 44 U/L (5-34); BILIRUBIN,TOTAL 0.7 mg/dL (0.2-1.2); BLOOD UREA NITROGEN 8 mg/dL (10-20); CALCIUM 7.9 mg/dL (8.4-10.2); CARBON DIOXIDE 23 mmol/L (22-29); CHLORIDE 110 mmol/L (98-107); CREATININE, serum 0.57 mg/dL (0.57-1.11); GLUCOSE 124 mg/dL (70-99); POTASSIUM 3.3 mmol/L (3.5-4.5); SODIUM 143 mmol/L (136-145); TOTAL PROTEIN 5.6 gm/dL (6.2-8.1)
[2021-10-28 09:57] LABS: ACETAMINOPHEN < 1.0 ug/mL (10-30)
--- NOTE | 2021-10-28 10:30 | NUR ---
SPOKE TO POISON CONTROL. AFTER REVIEWING THE CHART, THEY SUGGEST CAN STOP ACETYLCYSTENINE IF OK WITH PROVIDER, SPOKE TO DR RODRIGUEZ, MEDICATION DCd.
--- NOTE | 2021-10-28 14:55 | NUR ---
Supervisor [employer]ation did not meet with patient as she is to have psych screen once medically stable. SW contacted patient's mother, Leslie (ph#[phone]) to complete initial intake. Patient lives alone in an apartment in [place] and sees Dr. Delvis Vela for primary care. Patient obtains medications from [facility] and uses a knee walker for ambulation. Leslie reports that over the last couple years, patient has been neglecting her own personal hygiene. ROMAINE reviewed Advance Directives in EMR which designate patient's son, Alan and daughter, Leslie. Patient's mother, Leslie advised that patient and Alan are estranged and patient and her daughter Leslie only speak on occasion. Leslie advised patient had talked about designating her to be DPOA-HC. ROMAINE advised patient's mother, Leslie that we would have to utilize current DPOA-HC until patient is willing and able to sign an updated one. Leslie verbalized understanding. ROMAINE provided update on DPOA-HC to RAEANN Sow.
--- NOTE | 2021-10-28 20:02 | NUR ---
Assessment complete and charted. Patient has cast to right lower extremity. CMS intact. Patient able to move toes without difficulty. Warm and cap refill <2 sec. Patient believes she is at [facility]. Reorientated patient. Denies needs. Call light in reach.
[2021-10-29] VITALS (341 sets, daily range): BP systolic 131–158; BP diastolic 61–77; PULSE 50–72; TEMP 98–99; O2SAT 92–100
[2021-10-29 05:50] LABS: BASO % 0.1 % (0.0-2.0); EOS # 0.1 K/mm3 (0.0-0.7); EOS % 0.9 % (0.0-4.0); GRAN # 5.6 K/mm3 (1.4-6.5); GRAN % 74.6 % (42.2-75.2); HEMOGLOBIN 11.3 g/dl (12.5-16.0); LYMPH # 1.4 K/mm3 (1.2-3.4); LYMPH % 19.2 % (20.0-51.0); MEAN CELL VOLUME 96 fl (80.0-100.0); MEAN CORPUSCULAR HEMOGLOBIN 33 pg (27-31); MEAN CORPUSCULAR HGB CONC 34 g/dl (33.0-37.0); MEAN PLATELET VOLUME 9.5 fl (7.4-10.4); MONO # 0.4 K/mm3 (0.1-0.6); MONO % 4.9 % (1.7-9.3); PLATELET COUNT 235 K/mm3 (130-400); RED BLOOD COUNT 3.48 M/mm3 (4.10-5.30); REDCELL DISTRIBUTION WIDTH-CV 12.2 % (11.5-14.5)
[2021-10-29 05:55] LABS: HEMATOCRIT 33.5 % (37.0-47.0)
[2021-10-29 06:02] LABS: ALBUMIN 2.3 gm/dL (3.5-5.0); BILIRUBIN,TOTAL 0.5 mg/dL (0.2-1.2); CALCIUM 8.2 mg/dL (8.4-10.2); CREATININE, serum 0.51 mg/dL (0.57-1.11); POTASSIUM 3.4 mmol/L (3.5-4.5); TOTAL PROTEIN 5.4 gm/dL (6.2-8.1)
--- NOTE | 2021-10-29 06:15 | NUR ---
Reported 6/10 pain in right ankle. Given PRN motrin
--- NOTE | 2021-10-29 07:00 | NUR ---
PT RESTING IN BED. VSS. PT DENIES NEEDS AT THIS TIME. KCL AND PRECEDEX RUNNING. WILL CONTINUE TO MONITOR.
--- NOTE | 2021-10-29 07:22 | NUR ---
Report given to Rae CARY
--- NOTE | 2021-10-29 09:24 | NUR ---
THIS RN CALLED PT'S MOTHER KINZA AND ASKED TO BRING IN PT'S CELL PHONE WHICH HAS HER LIST OF HOME MEDICATIONS. MOTHER STATES SHE WILL BRING UP AND DROP OFF AT THE ER.
[2021-10-29] MEDS ORDERED: LAMICTAL150 MG PO (10:54)
[2021-10-29] MEDS ORDERED: LEXAPRO 10MG10 MG PO (10:56)
[2021-10-29] MEDS ORDERED: COLACE 100100 MG/CAP PO (10:59)
[2021-10-29] MEDS ORDERED: IMITREX 25MG TA25 MG PO (10:59)
--- NOTE | 2021-10-29 19:22 | NUR ---
Patient admitted to room 312 from ICU. Shift assessment performed. Medications, allergies, and pharmacy reviewed. Patient A&O. VSS. IV fluids running as ordered. PRN medication given once for sharp pain rated 7/10 in right foot. Q15 suicide checks completed. Room prepped for patient per protocol. Patient denies any further pain, discomfort, SOA, or further needs at this time. Diaz catheter in place, securment device in use, no kinks in tubing. Call light in reach. Fall percautions in place.
[2021-10-30] VITALS (18 sets, daily range): BP systolic 123–137; BP diastolic 50–82; PULSE 57–74; TEMP 97.6–98.8
--- NOTE | 2021-10-30 05:07 | NUR ---
PT REMAINED A/OX4 THIS SHIFT, PT CONTINUES TO C/O PAIN TO RLE, RLE CAST AND DRESSING IN PLACE; C/D/I. VSS. 02 ROOM AIR. THIS NURSE SPOKE TO POISON CONTROL WHO CLOSED OUT WITH PT PER THEIR REPORT PT IS ALERT, VSS, FREE OF N/V/D. ALL NEEDS MET THIS SHIFT. SUICIDE PRECAUTIONS IN PLACE.
--- NOTE | 2021-10-30 08:37 | NUR ---
PT LAYING IN BED. MORNING MEDICATIONS GIVEN. SHIFT ASSESSMENT COMPLETED. SUICIDE PRECAUTIONS IN PLACE, PT IS NOT FEELING SUICIDAL AND IS ASKING WHY SHE HAS NOT BEEN STARTED BACK ON HER PSYCH MEDICATIONS YET, WILL DISCUSS WITH HOSPITALIST. REPORT PAIN TO HER R ANKLE. STATES SHE WOULD LIKE TO GET UP TO THE COMMODE IF ABLE TO SOMETIME TODAY. DENIES ANY NEEDS. REFUSING PO POTASSIUM, SWITCHED TO IV. WILL CONTINUE TO MONITOR.
--- NOTE | 2021-10-30 10:57 | NUR ---
The PA notified ROMAINE that the patient has been medically cleared and is ready to be screened by [facility]. ROMAINE contacted and faxed the patient's records to [facility]. Awaiting information for Zoom meeting to screen the patient.
--- NOTE | 2021-10-30 13:12 | NUR ---
SUICIDE ASSESSMENT D/C FOLLOWING MENTAL HEALTH EVALUATION BY DUARTE. NOTIFIED TAMMY AND DR. OROZCO OF RESULTS OF EVALUATION.
--- NOTE | 2021-10-30 14:42 | NUR ---
Taylor, the patient's RN, notified ROMAINE that [facility] screened the patient. [facility] has cleared the patient to return home. They would recommend the patient's medications be sent to a pharmacy that can do bubble packs. Taylor notified the hospitalist team of this. ROMAINE staffed with the PA. PT/OT has been ordered to determine any recommendations. ROMAINE staffed with PT. PT states that the patient is walking 200 ft with the knee scooter, which she has at home. PT states that the patient does not have any urgent PT needs. Home Health could be beneficial for medication management. ROMAINE updated the clinical team. The clinical team would like to see if patient's friends or family can clear out the patient's home of her previous meds and they agree with home health. ROMAINE met with the patient to update and discuss home health. The patient states that she feels comfortable returning home. She states that some friends are going to move some things in her house, to make it easier to get around. She states that she can ask them to clear out the meds too. The patient is interested in home health. ROMAINE provided her with Medicare.gov's list of home health agencies that serve [place]. The patient chose [facility]. ROMAINE contacted and faxed a referral to Jaci at [facility]. The patient has [employer]. Jaci plans to check the patient's [employer] benefits. ROMAINE contacted and updated the patient's mother, Leslie. Leslie is in agreement to the plan. *Discharge plan: home with home health*
--- NOTE | 2021-10-30 15:20 | NUR ---
Jaci, at [facility], states that they are good to accept the patient, but with her insurance, she would have a co-payment of $25 a visit. SW to inform the patient.
[2021-10-30] MEDS ORDERED: INDERAL40 MG PO (16:03)
[2021-10-30] MEDS ORDERED: ALDACTONE 25MG25 M1 PO (16:03)
[2021-10-30] MEDS ORDERED: ASPIRIN 81M81 MG/TA2 PO (16:03)
[2021-10-30] MEDS ORDERED: TYLENOL 500MG500 MG PO (16:04)
[2021-10-30] MEDS ORDERED: LAMICTAL 100MG100 MG PO (16:05)
[2021-10-30] MEDS ORDERED: NEURONTIN600 MG/TAB PO (16:05)
--- NOTE | 2021-10-30 16:07 | NUR ---
PT BOWDEN D/C AT THIS TIME.
[2021-10-30] MEDS ORDERED: LAMICTAL150 MG PO (16:10)
[2021-10-30] MEDS ORDERED: SEROQUEL 1100 MG/TAB PO (16:10)
[2021-10-30] MEDS ORDERED: LEXAPRO 10MG10 MG PO (16:10)
[2021-10-30] MEDS ORDERED: MELATONIN5 M1 SL (16:11)
[2021-10-30] MEDS ORDERED: COLACE 100100 MG/CAP PO ×2 (16:11)
[2021-10-30] MEDS ORDERED: FOLIC ACID 40400 MCG PO (16:12)
[2021-10-30] MEDS ORDERED: NATURAL IRON65 MG PO (16:17)
--- NOTE | 2021-10-30 18:27 | NUR ---
PT STOOL CULTURE RESULTS POSITIVE, PLACED ON PRECAUTIONS AND APPROPRIATE SIGNS IN PLACE. STILL HAVING MULTIPLE EPISODES OF WATERY DIARRHEA. PT HAD A PLEASANT MOOD THROUGHOUT TO DAY AND IS EAGER TO D/C HOME. WILL PASS ALONG REPORT TO ONCOMING RN.
[2021-10-30 19:00] LABS: CLOSTRIDIUM DIFF A/B NEG; CLOSTRIDIUM DIFF A/B INTERP NonToxigenic C.diff
[2021-10-31 00:39] VITALS: BP 104/52; BP 93/42; PULSE 83; TEMP 98.4
--- NOTE | 2021-10-31 01:35 | NUR ---
PT SLEEPING WELL THIS EVENING, HAS NOT CALLED ON THE CALL LIGHT OFTEN. PT STATED AT THE BEGINNING OF THE NIGHT "I AM GLAD I AM GETTING MY PSYCH MEDS BACK. THIS MEANS I'LL SLEEP WELL TONIGHT." PT HAS INDEED SLEPT WELL. SHE DENIES ANY NEEDS DURING ROUNDING. WILL CONTINUE TO MONITOR THROUGH THE NIGHT.
[2021-10-31 03:23] VITALS: BP 139/66; PULSE 72; TEMP 98.6
[2021-10-31 06:26] LABS: BASO % 0.3 % (0.0-2.0); EOS # 0.1 K/mm3 (0.0-0.7); EOS % 1.5 % (0.0-4.0); GRAN # 5.6 K/mm3 (1.4-6.5); HEMOGLOBIN 11.5 g/dl (12.5-16.0); LYMPH # 1.7 K/mm3 (1.2-3.4); LYMPH % 21.6 % (20.0-51.0); MEAN CELL VOLUME 98 fl (80.0-100.0); MEAN CORPUSCULAR HEMOGLOBIN 32 pg (27-31); MEAN CORPUSCULAR HGB CONC 33 g/dl (33.0-37.0); MONO # 0.4 K/mm3 (0.1-0.6); MONO % 5.3 % (1.7-9.3); PLATELET COUNT 223 K/mm3 (130-400); RED BLOOD COUNT 3.56 M/mm3 (4.10-5.30)
[2021-10-31 06:27] LABS: HEMATOCRIT 34.9 % (37.0-47.0)
[2021-10-31 06:44] LABS: ALBUMIN 2.8 gm/dL (3.5-5.0); BILIRUBIN,TOTAL 0.5 mg/dL (0.2-1.2); CALCIUM 8.5 mg/dL (8.4-10.2); CREATININE, serum 0.61 mg/dL (0.57-1.11); POTASSIUM 3.5 mmol/L (3.5-4.5)
--- NOTE | 2021-10-31 07:26 | NUR ---
REPORT GIVEN TO RAEANN MCLEAN.
[2021-10-31] MEDS ORDERED: ZITHROMAX500 M2 PO (07:45)
[2021-10-31] MEDS ORDERED: VANCOCIN H125 MG/CAP PO (07:45)
[2021-10-31 07:50] VITALS: BP 114/53; PULSE 80; TEMP 98.5
--- NOTE | 2021-10-31 09:16 | NUR ---
The patient is to discharge back home today, 10/31, with home health services for prison/PT/OT from [facility]. ROMAINE attempted to notify Jaci at [facility]. SW left her a voicemail and faxed her the orders. No additional needs at this time.
--- NOTE | 2021-10-31 09:37 | NUR ---
PT SITTING UP IN BED. MORNING MEDICATIONS GIVEN. SHIFT ASSESSMENT COMPLETED. PT EAGER TO D/C HOME THIS MORNING, D/C ORDERS WERE PLACED. PT DENIES ANY DIARRHEA SINCE LAST NIGHT BEFORE BED. DENIES ANY OTHER CONCERNS OR NEEDS AT THIS TIME. WILL D/C SOON.
--- NOTE | 2021-10-31 10:45 | NUR ---
DISCHARGE INSTRUCTIONS GIVEN. IV D/C. TELE D/C. BELONGINGS PACKED UP. WAITING FOR RIDE TO ARRIVE.
--- NOTE | 2021-10-31 11:14 | NUR ---
PT ESCORTED DOWN TO VEHICLE. WILL D/C FROM SYSTEM.
== END 2021-10-31 11:15 | disposition home health service (06) | DRG 917 ==
LOC: COL.ER 18:43 → MEDICAL 20:45 → ICU 20:45 → MEDICAL 10-29 13:44
PROVIDERS: Family Medicine; Nurse Practitioner Family; Physician Assistant; ADMIT Internal Medicine
DX: T40.2X2A Poisoning by other opioids, intentional self-harm, initial encounter (principal); G92.9 Unspecified toxic encephalopathy; Z68.41 Body mass index [BMI] 40.0-44.9, adult; R32 Unspecified urinary incontinence; E78.5 Hyperlipidemia, unspecified; E11.9 Type 2 diabetes mellitus without complications; F41.9 Anxiety disorder, unspecified; F32.A Depression, unspecified; G47.33 Obstructive sleep apnea (adult) (pediatric); G47.00 Insomnia, unspecified; E66.01 Morbid (severe) obesity due to excess calories; D50.9 Iron deficiency anemia, unspecified; M19.90 Unspecified osteoarthritis, unspecified site; G89.29 Other chronic pain; M54.9 Dorsalgia, unspecified; G43.909 Migraine, unspecified, not intractable, without status migrainosus; K59.09 Other constipation; E87.6 Hypokalemia; F17.210 Nicotine dependence, cigarettes, uncomplicated; E88.81 Metabolic syndrome and other insulin resistance; R15.9 Full incontinence of feces; B96.20 Unspecified Escherichia coli [E. coli] as the cause of diseases classified elsewhere; Z96.653 Presence of artificial knee joint, bilateral; I25.2 Old myocardial infarction; Z23 Encounter for immunization
CPT/HCPCS: 99223-AI; 99233-AI; 99239; J0132; J1650; J2060; J2310; J2405; J3480; J7030; J7070

== ENCOUNTER → 2022-01-22 | Outpatient (CLI) | payer BC ==
[~2022-01-22] MED LIST changes: +COLACE 100100 MG/CAP PO; +IMITREX 25MG TA25 MG PO; +LEXAPRO 10MG10 MG PO; +NATURAL IRON65 MG PO; +VANCOCIN H125 MG/CAP PO; +ZITHROMAX500 M2 PO
== END ==
LOC: MHCPAIN 09:11
DX: M54.50 Low back pain, unspecified (principal); M47.896 Other spondylosis, lumbar region; M53.3 Sacrococcygeal disorders, not elsewhere classified
CPT/HCPCS: G0463

== ENCOUNTER → 2022-02-24 | Outpatient (CLI) | payer BC | LOC: MHCPAIN 12:22 | DX: M47.817 Spondylosis without myelopathy or radiculopathy, lumbosacral region (principal); M53.3 Sacrococcygeal disorders, not elsewhere classified; M54.50 Low back pain, unspecified | CPT/HCPCS: G0463; J1100; J2250; J3010 ==

== ENCOUNTER → 2022-02-27 | Outpatient (CLI) | payer BC | LOC: MHCPAIN 08:33 | DX: M47.817 Spondylosis without myelopathy or radiculopathy, lumbosacral region (principal); M53.3 Sacrococcygeal disorders, not elsewhere classified; M54.50 Low back pain, unspecified | CPT/HCPCS: J1100; J2250; J3010 ==

== ENCOUNTER 2022-03-19 18:04 | Emergency (ER) | payer MEDICAID ==
[~2022-03-19] VITALS: Ht 165.1 cm; Wt 102.3 kg
[2022-03-19 18:19] VITALS: BP 116/58; PULSE 69; TEMP 98.4
== END 2022-03-19 20:20 | disposition home or self-care (01) ==
LOC: COL.ER 18:04
DX: S93.601A Unspecified sprain of right foot, initial encounter (principal); F17.200 Nicotine dependence, unspecified, uncomplicated; Z98.890 Other specified postprocedural states; W18.30XA Fall on same level, unspecified, initial encounter

== ENCOUNTER → 2022-04-16 | Outpatient (CLI) | payer MEDICAID | LOC: MHCPAIN 09:40 | DX: M53.3 Sacrococcygeal disorders, not elsewhere classified (principal); M47.816 Spondylosis without myelopathy or radiculopathy, lumbar region; M54.59 Other low back pain | CPT/HCPCS: G0463 ==

== ENCOUNTER 2022-07-29 20:25 | Inpatient (IN) | payer MEDICAID ==
[~2022-07-29] VITALS: Ht 162.6 cm; Wt 100.1 kg
[2022-07-29 22:03] LABS: BASO # 0.1 K/mm3 (0.0-0.2); BASO % 0.6 % (0.0-2.0); EOS # 0.3 K/mm3 (0.0-0.7); EOS % 2.3 % (0.0-4.0); GRAN # 7.2 K/mm3 (1.4-6.5); GRAN % 63.9 % (42.2-75.2); LYMPH # 3.2 K/mm3 (1.2-3.4); LYMPH % 28.7 % (20.0-51.0); MEAN CELL VOLUME 104 fl (80.0-100.0); MEAN CORPUSCULAR HEMOGLOBIN 34 pg (27-31); MEAN CORPUSCULAR HGB CONC 33 g/dl (33.0-37.0); MEAN PLATELET VOLUME 9.3 fl (7.4-10.4); MONO # 0.5 K/mm3 (0.1-0.6); MONO % 4.3 % (1.7-9.3); PLATELET COUNT 290 K/mm3 (130-400); RED BLOOD COUNT 3.55 M/mm3 (4.10-5.30); REDCELL DISTRIBUTION WIDTH-CV 12.4 % (11.5-14.5)
[2022-07-29 22:04] LABS: HEMATOCRIT 36.8 % (37.0-47.0)
[2022-07-29 22:22] LABS: BILIRUBIN,TOTAL 0.2 mg/dL (0.2-1.2); CALCIUM 9.2 mg/dL (8.4-10.2); CREATININE, serum 0.85 mg/dL (0.57-1.11); POTASSIUM 3.7 mmol/L (3.5-4.5); TOTAL PROTEIN 6.9 gm/dL (6.2-8.1)
[2022-07-30] VITALS (10 sets, daily range): BP systolic 96–139; BP diastolic 47–62; PULSE 73–94; TEMP 97–98.4
[2022-07-30] MEDS ORDERED: ULTRAM 50MG TAB50 MG PO (00:14)
[2022-07-30] MEDS ORDERED: NYSTATIN100000 U/1 TOP (00:14)
[2022-07-30] MEDS ORDERED: INDERAL40 MG PO (00:15)
[2022-07-30] MEDS ORDERED: LAMICTAL 100MG100 MG PO (00:15)
[2022-07-30] MEDS ORDERED: K-DUR 10 MEQ T10 MEQ PO (00:15)
[2022-07-30] MEDS ORDERED: LAMICTAL150 MG PO (00:16)
[2022-07-30] MEDS ORDERED: SEROQUEL 1100 MG/TAB PO (00:16)
[2022-07-30] MEDS ORDERED: NEURONTIN600 MG/TAB PO (00:16)
[2022-07-30] MEDS ORDERED: MOTRIN 800800 MG/TAB PO (00:19)
[2022-07-30] MEDS ORDERED: COLACE 100100 MG/CAP PO (00:22)
[2022-07-30] MEDS ORDERED: FOLIC ACID0.8 MG PO (00:22)
[2022-07-30 07:01] LABS: BASO # 0.1 K/mm3 (0.0-0.2); BASO % 0.8 % (0.0-2.0); EOS # 0.2 K/mm3 (0.0-0.7); EOS % 2.7 % (0.0-4.0); GRAN # 3.3 K/mm3 (1.4-6.5); GRAN % 50.3 % (42.2-75.2); HEMOGLOBIN 10.2 g/dl (12.5-16.0); LYMPH # 2.7 K/mm3 (1.2-3.4); LYMPH % 40.8 % (20.0-51.0); MEAN CELL VOLUME 106 fl (80.0-100.0); MEAN CORPUSCULAR HEMOGLOBIN 33 pg (27-31); MEAN CORPUSCULAR HGB CONC 32 g/dl (33.0-37.0); MEAN PLATELET VOLUME 9.2 fl (7.4-10.4); MONO # 0.3 K/mm3 (0.1-0.6); MONO % 5.2 % (1.7-9.3); PLATELET COUNT 215 K/mm3 (130-400); RED BLOOD COUNT 3.05 M/mm3 (4.10-5.30); REDCELL DISTRIBUTION WIDTH-CV 12.4 % (11.5-14.5)
[2022-07-30 07:02] LABS: HEMATOCRIT 32.4 % (37.0-47.0)
[2022-07-30 07:17] LABS: CALCIUM 8.5 mg/dL (8.4-10.2); CREATININE, serum 0.69 mg/dL (0.57-1.11); POTASSIUM 3.6 mmol/L (3.5-4.5)
--- NOTE | 2022-07-30 10:52 | NUR ---
SW met with the patient to discuss discharge plan. The patient lives alone in [place] at the [facility]. She states that she is on the second floor, but they do have an elevator she can use. She utilizes a wheelchair and reports independence with ADLs and transfers. She gives herself spongebaths. She does not have any in home services. The patient's PCP is Dr. Delvis Vela and she receives her medications from [facility]. The patient's DPOA-HC is in EMR. It designates her son, Alan (ph#[phone], [place]). The alternate is her mother, Leslie Henao (ph#[phone], [place]). The patient would like to return home upon discharge. 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 Will await PT/OT evals. *Discharge plan: Will await PT/OT evals*
--- NOTE | 2022-07-30 11:59 | NUR ---
PT TRANSFERED TO SURG BED RM 322. PT WAS ABLE TO TRANSFER HERSELF FROM ER BED TO SURG BED AND ABLE TO STAND AND PIVOT FROM BED TO WHEELCHAIR FOR BATHROOM. PT SIGNED CONSENT FOR SX. VSS. CALL LIGHT WITHIN REACH
--- NOTE | 2022-07-30 12:18 | NUR ---
PICKED UP FOR SX. PT LEAVING SURGICAL FLOOR VIA BED.
--- NOTE | 2022-07-30 14:49 | NUR ---
RECIEVED POST OP REPORT. PT WILL BE ARRIVING BACK TO UNIT. VSS. SEE SX NOTES
--- NOTE | 2022-07-30 15:03 | NUR ---
PT ARRIVED TO ROOM. USED BATHROOM. PT STATED SHE IS IN MINIMAL PAIN. VSS. CALL LIGHT WITHIN REACH.
--- NOTE | 2022-07-30 20:00 | NUR ---
Pt doing well. Pt does very well at transferring self to wheelchair, getting in to bathroom and getting on to the toilet. Pt does have complaints of some pain to RLE, pain medication not available to give at this time, pt reports she can wait until oral pain medication can be given. DRSG to knee is CDI. Call light within reach, will continue to monitor
--- NOTE | 2022-07-30 23:40 | NUR ---
Pt resting with eyes closed, even non labored breathing
[2022-07-31] VITALS (7 sets, daily range): BP systolic 90–125; BP diastolic 45–95; PULSE 82–99; TEMP 97.6–99.1
--- NOTE | 2022-07-31 06:08 | NUR ---
Pt slept pretty hard most of the night. She does wake easily, but quickly falls back asleep. Denies any needs at this time
[2022-07-31 06:22] LABS: BASO % 0.6 % (0.0-2.0); EOS # 0.2 K/mm3 (0.0-0.7); EOS % 2.2 % (0.0-4.0); GRAN # 4.5 K/mm3 (1.4-6.5); GRAN % 64.4 % (42.2-75.2); LYMPH # 1.9 K/mm3 (1.2-3.4); MEAN CELL VOLUME 104 fl (80.0-100.0); MEAN CORPUSCULAR HGB CONC 33 g/dl (33.0-37.0); MEAN PLATELET VOLUME 9.7 fl (7.4-10.4); MONO # 0.4 K/mm3 (0.1-0.6); MONO % 5.5 % (1.7-9.3); PLATELET COUNT 177 K/mm3 (130-400); RED BLOOD COUNT 2.81 M/mm3 (4.10-5.30); REDCELL DISTRIBUTION WIDTH-CV 12.6 % (11.5-14.5)
[2022-07-31 06:23] LABS: HEMATOCRIT 29.3 % (37.0-47.0); HEMOGLOBIN 9.6 g/dl (12.5-16.0); MEAN CORPUSCULAR HEMOGLOBIN 34 pg (27-31)
[2022-07-31 06:30] LABS: CALCIUM 8.5 mg/dL (8.4-10.2); CREATININE, serum 0.66 mg/dL (0.57-1.11); POTASSIUM 3.5 mmol/L (3.5-4.5)
--- NOTE | 2022-07-31 08:00 | NUR ---
Pt. sitting up in bed. Pt. is A&OX3, assessment complete. PICC to rt. upper arm patent. Pt. reports pain to rt. leg at a 7 on pain scale, giving meds per orders. Dressing to rt. BKA CDI. Pt. denies further needs, call light within reach.
--- NOTE | 2022-07-31 13:20 | NUR ---
PT met with the patient. They note that the patient has been doing pivot transfers with the wheelchair and wheelchair mobility to and from the restroom without any assistance. PT notes that the patient should be able to discharge back home, once medically stable.
--- NOTE | 2022-07-31 21:50 | NUR ---
Patient A/Ox4, VSS, head to toe assessment done, see shift assessment, reports pain to her surgical site which she rated it as 7/10, oxycodone given, tranfers independently with the use of wheelchair but she wants help during the night because she's taking seroquel, able to voice needs, call light and personal items within reach, will continue to monitor.
[2022-08-01 04:21] VITALS: BP 100/52; PULSE 80; TEMP 97.4
[2022-08-01 06:52] LABS: BASO % 0.3 % (0.0-2.0); EOS # 0.2 K/mm3 (0.0-0.7); EOS % 3.1 % (0.0-4.0); GRAN # 3.7 K/mm3 (1.4-6.5); GRAN % 57.9 % (42.2-75.2); LYMPH # 2.1 K/mm3 (1.2-3.4); LYMPH % 32.7 % (20.0-51.0); MEAN CELL VOLUME 105 fl (80.0-100.0); MEAN CORPUSCULAR HGB CONC 33 g/dl (33.0-37.0); MEAN PLATELET VOLUME 10.5 fl (7.4-10.4); MONO # 0.4 K/mm3 (0.1-0.6); MONO % 5.5 % (1.7-9.3); PLATELET COUNT 170 K/mm3 (130-400); RED BLOOD COUNT 2.61 M/mm3 (4.10-5.30); REDCELL DISTRIBUTION WIDTH-CV 12.5 % (11.5-14.5)
[2022-08-01 06:57] LABS: HEMATOCRIT 27.4 % (37.0-47.0); HEMOGLOBIN 8.9 g/dl (12.5-16.0); MEAN CORPUSCULAR HEMOGLOBIN 34 pg (27-31)
[2022-08-01 07:01] LABS: CALCIUM 8.4 mg/dL (8.4-10.2); CREATININE, serum 0.63 mg/dL (0.57-1.11); POTASSIUM 3.5 mmol/L (3.5-4.5)
--- NOTE | 2022-08-01 07:45 | NUR ---
Pt. sitting up in bed. Pt. is A&OX3, assessment complete. PICC to rt. upper arm patent. Dressing to rt. BKA CDI. Dressing changed by WINSTON Cordova this am. Pt. reports pain at a 4 on pain scale. Will give pain meds per orders. Pt. denies further needs, call light within reach.
[2022-08-01 08:15] VITALS: BP 104/42; PULSE 77; TEMP 97.7
[2022-08-01 12:21] VITALS: BP 108/54; PULSE 90; TEMP 97.9
[2022-08-01 16:15] VITALS: BP 106/50; PULSE 78; TEMP 98
[2022-08-01 20:32] VITALS: BP 113/57; PULSE 79; TEMP 99.3
--- NOTE | 2022-08-01 21:50 | NUR ---
Patient resting in bed, VSS, head to toe assessment done, reports pain to her surgical site didn't rate the pain, oxycodone given, denies further needs, call light and personal items within reach, will continue to monitor.
[2022-08-02] VITALS (7 sets, daily range): BP systolic 95–131; BP diastolic 50–90; PULSE 75–98; TEMP 98–98.4
--- NOTE | 2022-08-02 03:20 | NUR ---
Patient resting in bed, eyes closed, respirations even and unlabored.
[2022-08-02 06:29] LABS: COLLECTION METHOD CLEAN CATCH
[2022-08-02 06:36] LABS: BASO % 0.6 % (0.0-2.0); EOS # 0.3 K/mm3 (0.0-0.7); EOS % 4.5 % (0.0-4.0); GRAN # 3.8 K/mm3 (1.4-6.5); GRAN % 60.1 % (42.2-75.2); LYMPH # 1.9 K/mm3 (1.2-3.4); LYMPH % 29.6 % (20.0-51.0); MEAN CELL VOLUME 104 fl (80.0-100.0); MEAN CORPUSCULAR HGB CONC 33 g/dl (33.0-37.0); MEAN PLATELET VOLUME 10.5 fl (7.4-10.4); MONO # 0.3 K/mm3 (0.1-0.6); MONO % 4.9 % (1.7-9.3); PLATELET COUNT 153 K/mm3 (130-400); RED BLOOD COUNT 2.76 M/mm3 (4.10-5.30); REDCELL DISTRIBUTION WIDTH-CV 12.6 % (11.5-14.5)
[2022-08-02 06:41] LABS: HEMATOCRIT 28.6 % (37.0-47.0); HEMOGLOBIN 9.3 g/dl (12.5-16.0); MEAN CORPUSCULAR HEMOGLOBIN 34 pg (27-31)
[2022-08-02 06:49] LABS: CALCIUM 8.6 mg/dL (8.4-10.2); CREATININE, serum 0.6 mg/dL (0.57-1.11); POTASSIUM 3.6 mmol/L (3.5-4.5)
[2022-08-02 06:54] LABS: MUCOUS Present (NOT PRESENT); SQUAMOUS EPITHELIAL 0-2 /hpf (0-10); URINE BACTERIA None Seen /hpf (NONE SEEN); URINE RBC 0-2 /hpf (0-2)
[2022-08-02 06:55] LABS: URINE APPEARANCE Clear (CLEAR/HAZY); URINE BLOOD Negative (NEGATIVE); URINE COLOR Yellow (YELLOW); URINE GLUCOSE Negative (NEGATIVE); URINE KETONE Negative (NEGATIVE); URINE NITRATE Negative (NEGATIVE); URINE PROTEIN(semi-quant) Negative (NEGATIVE); URINE UROBILINOGEN 0.2 E.U/dL (0.2-1.0)
--- NOTE | 2022-08-02 10:01 | NUR ---
RESTING IN BED, KNEE IMMOBILIZER INPLACE. PT DENIES NEEDS OR PAIN. BREAKFAST TRAY DELIVERED. VSS, PO PAIN MEDS FOR PAIN CONTROL EFFECTIVE.
--- NOTE | 2022-08-02 23:37 | NUR ---
SHIFT REPORT FROM KATLYN CARY. PATIENT IN BED ON ROOM ENTRY. ALERT AND ORIENTED. HS MEDS PER EMAR. IV ABX INFUSING. BRACE TO R LEG. PICC TO MASTER PATENT WITH GOOD BLOOD RETURN. PRN BRENDON Q4 PER PATIENTS REQUEST. DENIES ADDITIONAL NEEDS. CALL LIGHT IN REACH.
[2022-08-03] VITALS: BP 109/55; PULSE 83; TEMP 98
[2022-08-03 03:19] VITALS: BP 101/51; PULSE 80; TEMP 98.5
[2022-08-03 07:15] VITALS: BP 106/56; PULSE 73; TEMP 97.9
--- NOTE | 2022-08-03 08:44 | NUR ---
PT UP TO BR INDEPENDENT, HAD BM AND VOIDED. RETURNED TO RECLINER FOR BREAKFAST. AM MEDS GIVEN ORDERED. VSS, PT WOULD LIKE TO GO HOME. WAITING FOR RESULTS OF LAB CX AND THEN SETTING UP OUT PT ABX.
[2022-08-03 12:15] VITALS: BP 91/41; PULSE 78; TEMP 97.9
[2022-08-03] MEDS ORDERED: CIPRO 500MG TA500 MG PO (14:20)
[2022-08-03] MEDS ORDERED: FLAGYL500 MG PO (14:21)
[2022-08-03] MEDS ORDERED: ROXICODONE 55 MG/TAB PO ×2 (14:22→15:19)
[2022-08-03] MEDS ORDERED: NORCO 325 MG-51 TAB PO ×2 (15:13)
--- NOTE | 2022-08-03 15:54 | NUR ---
DISCHARGE INSTRUCTIONS REVIEWED WITH PT. QUESTIONS ANSWERED. PT LEFT FLOOR PER WHEEL CHAIR WITH STAFF. PICC LINE REMOVED PER PROTOCOLS.
== END 2022-08-03 15:55 | disposition home or self-care (01) | DRG 902 ==
LOC: COL.ER 20:25 → SURG 23:36
PROVIDERS: Internal Medicine; Nurse Practitioner Family; Orthopaedic Surgery; Physician Assistant; Student in an Organized Health Care Education/Training Program; ADMIT Internal Medicine
PROC: 02HV33Z Insertion of Infusion Device into Superior Vena Cava, Percutaneous Approach (ICD-10-PCS; principal; 2022-07-30 12:00)
PROC: 0JBN0ZZ Excision of Right Lower Leg Subcutaneous Tissue and Fascia, Open Approach (ICD-10-PCS; 2022-07-30 12:00)
DX: T81.31XA Disruption of external operation (surgical) wound, not elsewhere classified, initial encounter (principal); L03.115 Cellulitis of right lower limb; T87.43 Infection of amputation stump, right lower extremity; G43.909 Migraine, unspecified, not intractable, without status migrainosus; F41.9 Anxiety disorder, unspecified; I10 Essential (primary) hypertension; D72.829 Elevated white blood cell count, unspecified; D53.9 Nutritional anemia, unspecified; G89.29 Other chronic pain; M54.50 Low back pain, unspecified; G47.00 Insomnia, unspecified; E78.5 Hyperlipidemia, unspecified; G47.33 Obstructive sleep apnea (adult) (pediatric); Z96.653 Presence of artificial knee joint, bilateral; F31.9 Bipolar disorder, unspecified; B95.4 Other streptococcus as the cause of diseases classified elsewhere; Y83.5 Amputation of limb(s) as the cause of abnormal reaction of the patient, or of later complication, without mention of misadventure at the time of the procedure; F17.210 Nicotine dependence, cigarettes, uncomplicated; I25.2 Old myocardial infarction; Z90.710 Acquired absence of both cervix and uterus; Z89.511 Acquired absence of right leg below knee; Z90.49 Acquired absence of other specified parts of digestive tract; Z88.1 Allergy status to other antibiotic agents; Z79.82 Long term (current) use of aspirin; Z98.84 Bariatric surgery status; Z23 Encounter for immunization; Y92.89 Other specified places as the place of occurrence of the external cause
CPT/HCPCS: C1751; J0690; J0692; J1170; J1650; J2405; J2704; J3010; J3370; J7030; J7040; J7050; L1830

== ENCOUNTER 2022-09-25 18:26 | Emergency (ER) | payer MEDICAID ==
[~2022-09-25] VITALS: Ht 162.6 cm; Wt 104.5 kg
[~2022-09-25 18:26] MED LIST changes: +CIPRO 500MG TA500 MG PO; +FLAGYL500 MG PO; +FOLIC ACID0.8 MG PO; +MOTRIN 800800 MG/TAB PO; +NYSTATIN100000 U/1 TOP; +ROXICODONE 55 MG/TAB PO
[2022-09-25 18:29] VITALS: TEMP 98.7
[2022-09-25 20:00] VITALS: BP 136/82; PULSE 66
== END 2022-09-25 20:00 | disposition home or self-care (01) ==
LOC: COL.ER 18:26
DX: S52.501A Unspecified fracture of the lower end of right radius, initial encounter for closed fracture (principal); S39.92XA Unspecified injury of lower back, initial encounter; M25.561 Pain in right knee; E66.9 Obesity, unspecified; Z68.37 Body mass index [BMI] 37.0-37.9, adult; Z28.310 Unvaccinated for COVID-19; Z89.511 Acquired absence of right leg below knee; W05.0XXA Fall from non-moving wheelchair, initial encounter; W22.8XXA Striking against or struck by other objects, initial encounter

== ENCOUNTER → 2022-09-30 | Outpatient (CLI) | payer MEDICAID | LOC: MHCPAIN 09:40 | DX: M53.3 Sacrococcygeal disorders, not elsewhere classified (principal); M47.896 Other spondylosis, lumbar region; M79.2 Neuralgia and neuritis, unspecified | CPT/HCPCS: G0463 ==

== ENCOUNTER → 2022-12-10 | Outpatient (CLI) | payer MEDICAID | LOC: MHCPAIN 08:51 | DX: M47.896 Other spondylosis, lumbar region (principal); M54.50 Low back pain, unspecified; M53.3 Sacrococcygeal disorders, not elsewhere classified; M79.2 Neuralgia and neuritis, unspecified | CPT/HCPCS: G0463 ==

== ENCOUNTER → 2023-04-15 | Outpatient (CLI) | payer MEDICAID ==
[~2023-04-15] MED LIST changes: +CLEOCIN HC150 MG/CAP PO; +LIPITOR 40MG TA40 MG PO; +NARCAN4 MG NS
== END ==
LOC: COL.RAD 14:51
DX: M25.511 Pain in right shoulder (principal)

== ENCOUNTER → 2023-05-28 | Outpatient (CLI) | payer MEDICAID ==
[2023-05-28 13:13] LABS: BASO % 0.4 % (0.0-2.0); EOS # 0.2 K/mm3 (0.0-0.7); EOS % 2.5 % (0.0-4.0); GRAN # 5.6 K/mm3 (1.4-6.5); GRAN % 60.5 % (42.2-75.2); HEMATOCRIT 39.8 % (37.0-47.0); HEMOGLOBIN 13.2 g/dl (12.5-16.0); LYMPH % 31.9 % (20.0-51.0); MEAN CELL VOLUME 101 fl (80.0-100.0); MEAN CORPUSCULAR HEMOGLOBIN 34 pg (27-31); MEAN CORPUSCULAR HGB CONC 33 g/dl (33.0-37.0); MEAN PLATELET VOLUME 9.2 fl (7.4-10.4); MONO # 0.4 K/mm3 (0.1-0.6); MONO % 4.6 % (1.7-9.3); PLATELET COUNT 182 K/mm3 (130-400); RED BLOOD COUNT 3.94 M/mm3 (4.10-5.30); REDCELL DISTRIBUTION WIDTH-CV 14.2 % (11.5-14.5)
[2023-05-28 13:20] LABS: INR 0.9 (0.8-3.0)
[2023-05-28 13:23] LABS: PARTIAL THROMBOPLASTIN TIME 30.6 SECONDS (26.0-37.0)
[2023-05-28 13:26] LABS: CALCIUM 9.2 mg/dL (8.4-10.2); CREATININE, serum 0.74 mg/dL (0.57-1.11); POTASSIUM 4.1 mmol/L (3.5-4.5)
== END ==
LOC: COL.LAB 12:38
PROVIDERS: Student in an Organized Health Care Education/Training Program
DX: T14.8XXA Other injury of unspecified body region, initial encounter (principal); X58.XXXA Exposure to other specified factors, initial encounter

== ENCOUNTER → 2023-06-02 | Outpatient (CLI) | payer MEDICAID | LOC: COL.LAB 15:37 | DX: F39 Unspecified mood [affective] disorder (principal) ==

== ENCOUNTER → 2023-08-20 | Outpatient (CLI) | payer MEDICAID ==
[~2023-08-20] MED LIST changes: +Lidocaine PF 2% (20 MG/ML) 5 ML VIAL ONE; +Midazolam 2 MG/2 ML VIAL ONE; +fentaNYL 50 MCG/ML 2 ML VIAL ONE
== END ==
LOC: MHCPAIN 09:29
DX: M47.817 Spondylosis without myelopathy or radiculopathy, lumbosacral region (principal)
CPT/HCPCS: J0665; J2250; J3010

== ENCOUNTER → 2023-10-13 | Outpatient (CLI) | payer MEDICARE, OTHER, MEDICAID ==
[~2023-10-13] MED LIST changes: -Lidocaine PF 2% (20 MG/ML) 5 ML VIAL ONE; -Midazolam 2 MG/2 ML VIAL ONE; +ZOFRAN 4MG T4 MG/TAB PO; -fentaNYL 50 MCG/ML 2 ML VIAL ONE
== END ==
LOC: MC.RAD 15:40
DX: Z12.31 Encounter for screening mammogram for malignant neoplasm of breast (principal)

== ENCOUNTER → 2023-10-22 | Outpatient (CLI) | payer MEDICARE, OTHER, MEDICAID ==
[~2023-10-22] MED LIST changes: +Iohexol 300 - 10 ML VIAL ONE; +Lidocaine PF 2% (20 MG/ML) 2 ML VIAL ONE
== END ==
LOC: MHCPAIN 12:59
DX: M48.062 Spinal stenosis, lumbar region with neurogenic claudication (principal)
CPT/HCPCS: J1100; Q9967

== ENCOUNTER 2024-04-04 08:31 | Observation (INO) | payer OTHER ==
[~2024-04-04] VITALS: Ht 157.5 cm; Wt 78.3 kg
[2024-04-04] VITALS (9 sets, daily range): BP systolic 107–122; BP diastolic 62–89; PULSE 82–92; TEMP 98.2–98.4
[~2024-04-04 08:31] MED LIST changes: -Iohexol 300 - 10 ML VIAL ONE; -Lidocaine PF 2% (20 MG/ML) 2 ML VIAL ONE
[2024-04-04] MEDS ORDERED: NS 1,000 ML IV ONE (09:00)
[2024-04-04 09:41] LABS: BASO % 0.4 % (0.0-2.0); EOS % 0.3 % (0.0-4.0); GRAN # 8.2 K/mm3 (1.4-6.5); GRAN % 77.3 % (42.2-75.2); HEMATOCRIT 42.7 % (37.0-47.0); LYMPH # 1.8 K/mm3 (1.2-3.4); LYMPH % 16.7 % (20.0-51.0); MEAN CELL VOLUME 95 fl (80.0-100.0); MEAN CORPUSCULAR HEMOGLOBIN 31 pg (27-31); MEAN CORPUSCULAR HGB CONC 33 g/dl (33.0-37.0); MEAN PLATELET VOLUME 9.7 fl (7.4-10.4); MONO # 0.5 K/mm3 (0.1-0.6); MONO % 4.9 % (1.7-9.3); PLATELET COUNT 344 K/mm3 (130-400); REDCELL DISTRIBUTION WIDTH-CV 15.4 % (11.5-14.5)
[2024-04-04 09:58] LABS: ALBUMIN 3.7 g/dL (3.5-5.0); BILIRUBIN,TOTAL 0.6 mg/dL (0.2-1.2); CREATININE, serum 0.92 mg/dL (0.57-1.11); POTASSIUM 3.9 mEq/L (3.5-4.5); TOTAL PROTEIN 7.8 g/dl (6.2-8.1)
[2024-04-04 10:19] LABS: COLLECTION METHOD CLEAN CATCH
[2024-04-04 10:25] LABS: URINE APPEARANCE CLEAR (CLEAR/HAZY); URINE BLOOD TRACE (NEGATIVE); URINE COLOR YELLOW (YELLOW); URINE GLUCOSE NEGATIVE (NEGATIVE); URINE KETONE 3+ (NEGATIVE); URINE NITRATE NEGATIVE (NEGATIVE); URINE PROTEIN(semi-quant) TRACE (NEGATIVE)
[2024-04-04] MEDS ORDERED: MOBIC15 MG PO (10:31)
[2024-04-04] MEDS ORDERED: DESYREL DIVIDO150 M1 PO (10:32)
[2024-04-04] MEDS ORDERED: ATARAX 25MG25 MG/TAB PO (10:33)
[2024-04-04] MEDS ORDERED: ALLEGRA 180MG180 MG PO (10:34)
[2024-04-04] MEDS ORDERED: KLONOPIN 0.5MG0.5 MG PO (10:36)
[2024-04-04] MEDS ORDERED: GLUCOPHAGE500 MG/TAB PO (10:37)
[2024-04-04] MEDS ORDERED: MASON NATURAL2000 IU PO (10:37)
[2024-04-04 10:38] LABS: TRICYCLIC ANTIDEPRESS URINE POSITIVE (NEGATIVE)
[2024-04-04] MEDS ORDERED: LASIX 20MG TABL20 MG PO (10:38)
[2024-04-04] MEDS ORDERED: SEROQUEL300 MG PO (10:39)
[2024-04-04 10:45] LABS: MUCOUS PRESENT (NOT PRESENT); URINE RBC 0-2 /hpf (0-2); URINE WBC 0-2 /hpf (0-2)
[2024-04-04] MEDS ORDERED: Naloxone 0.4 MG/ML VIAL IV ONE ×2 (11:00)
[2024-04-04] MEDS ORDERED: Docusate Sodium 100 MG CAP PO PRN (11:30)
[2024-04-04] MEDS ORDERED: Acetaminophen 325 MG TAB PO PRN (11:30)
[2024-04-04] MEDS ORDERED: LR 1,000 ML IV SCH (11:30)
[2024-04-04] MEDS ORDERED: Polyethylene Glycol 3350 17 GM PDS PO PRN (11:30)
[2024-04-04] MEDS ORDERED: Ondansetron 4 MG/2 ML VIAL IV PRN (11:30)
--- NOTE | 2024-04-04 14:31 | NUR ---
PT RESTING IN BED, DENIES PAIN, REPORTS PREVIOUS HEADACHE RESOLVED WITHOUT INTERVENTION. PT VISITING WITH FRIENDS, PLEASANT, ALERT, COOPERATIVE. IVF INFUSING. PT HAD PREVIOUSLY REPORTED PILL FAUSTIN MISSING, STATES IT IS HOME WITH HER DAUGHTER. CALL LT IN REACH, PT DENIES OTHER NEEDS.
--- NOTE | 2024-04-04 14:33 | NUR ---
PT RESTING IN BED, PRONE PER SELF REPOSITIONING, CALL LT IN REACH, BED ALARM ON. PT FIDGETTING IN BED. WHEN ASKED QUESTIONS, PT ANSWERS YES TO ALL QUESTIONS ASKED. PT DOES GRIMACE TO NEEDLESTICK BY LAB. IVF INFUSING WITHOUT DIFFICULTY.
[2024-04-04] MEDS ORDERED: Atorvastatin 40 MG TAB PO SCH (21:00)
[2024-04-04] MEDS ORDERED: Nystatin 100,000 Units/GM Cream 15 GM TUBE TP SCH (21:00)
[2024-04-04] MEDS ORDERED: lamoTRIgine 100 MG TAB PO SCH (21:00)
--- NOTE | 2024-04-04 21:34 | NUR ---
PT HAS ORDER FOR NOC CPAP. PT AT THIS TIME SEEMS CONFUSED AND NOT UNDERSTANDING. THIS RT WILL CONTINUE TO MONNITOR SATURATIONS DURING SLEEP, CPAP AT THIS TIME SEEMS INAPROPRIATE.
--- NOTE | 2024-04-04 21:43 | NUR ---
patient lying in bed, alert and oriented to self (name) only, able to follow commands and respond to majority of questions appropriately. denies chest pain and shortness of breath. 2039- spoke with CRYSTAL Leblanc about giving pt PO meds, okay to give meds as ordered if pt able to swallow. pt sat on side of bed and tolerating small sips of water, PO meds given one at a time, tolerated and swallowed by patient with no difficulty at this time. pivot transfer with assist to bedside commode and back in bed. no remarkable skin findings, slight redness to panus, pt refused nystatin cream at this time. right BKA noted. IV in LAC is patent, site CDI with LR running at 100ml/hr. fall precautions in place, call light within reach. pt has no further needs, questions or concerns at this time.
[2024-04-05] VITALS (13 sets, daily range): BP systolic 109–129; BP diastolic 63–77; PULSE 76–89; TEMP 97.7–99.1
--- NOTE | 2024-04-05 08:36 | NUR ---
MD INFORMED PATIENT PULLED OUT A 3RD IV. PER PATINET DOES NOT REQUIRE IV ACCESS, IV FLUIDS DC AND IV MEDS CHANGED TO PO.
[2024-04-05] MEDS ORDERED: Famotidine 20 MG TAB PO SCH (09:00)
[2024-04-05] MEDS ORDERED: Citalopram 20 MG TAB PO SCH ×2 (09:00)
[2024-04-05] MEDS ORDERED: SINGULAIR 110 MG/TAB PO (10:41)
--- NOTE | 2024-04-05 11:30 | NUR ---
D: Fruit Packer stopped by room on rounds. A: Pt was resting and content. Pt has no needs right now. P: Fruit Packer informed pt that if she needed anything from the button tacker area to let her nurse know. Fruit Packer will follow up as needed.
--- NOTE | 2024-04-05 11:40 | NUR ---
Plastic Sheeting Cutter attempted to contact Alan, flory and left a voicemail. SW attempted the number listed on the [facility] for Alan and it was the wrong number. SW also attempted to contact MARLEY Hidalgo at the number listed on [facility] and was unable to leave a voicemail.
--- NOTE | 2024-04-05 12:28 | NUR ---
SW received call from patient's daughter Leslie. Leslie states that she doesn't have a lot of contact with patient and usually patient's son Alan or his Gwen is the point of contact. Leslie unable to verify information but believes patient lives at home alone and is independent without home services. ROMAINE explained that messages have been left for Alan and Gwen. Leslie states she has sent a message to them to ask them to return call to ROMAINE. Discharge plan: Home
--- NOTE | 2024-04-05 12:31 | NUR ---
ROMAINE attended clincial rounds. Patient was alert and oriented to person, place and situation. Patient unable to state why she is in the hospital however. Dr. Fernandes feels that patient is back to baseline and able to have conversation with patient about reason for being in hospital. Patient denied any concerns of returning home. Discharge plan: Home
[2024-04-05] MEDS ORDERED: ZOFRAN ODT4 MG PO (13:33)
--- NOTE | 2024-04-05 14:09 | NUR ---
ROMAINE and RAEANN Sandoval met with patient to determine her cognitive status. Patient states she lives with her friend Alayna in an apartment in [place]. She states her son Alan lives in [place] and she is unsure where her daughter Leslie lives. Patient slow to process information prior to answering questions. Patient states year: 2006, month: 2006, President: Rafal, season: my daughter in law's birthday. ROMAINE updated Dr. Fernandes on patient's cognitive status. RAEANN Sandoval informed that she was speaking with patient's son Alan on phone at this time. ROMAINE and Dr. Fernandes spoke with Alan on speaker phone. Alan states that he and his Gwen live in [place] and Leslie lives in [place]. He states that he and Gwen speak with patient daily in the evening and she is "99.9% of the time pretty clear". Alan states patient lives alone, is independent and drives herself to appointments. Alan shared that patient does have a friend Alayna who lives elsewhere in [place] with her and patient has a friend name Doretha. Alan to contact these two friends to inquire about change in patient status. ROMAINE explained to Alan that patient is admitted observation and will not qualify for SNF rehab. Discharge plan uncertain at this time. Discharge plan: TBD
--- NOTE | 2024-04-05 23:04 | NUR ---
patient lying in bed, alert and oriented to self only. able to follow verbal commands appropriately. denies chest pain and shortness of breath. right BKA noted, no additional remarkable skin findings, pt self repositions. no IV in place, physicians aware and okay with it. fall precautions in place, call light within reach. pt has no further needs, questions or concerns at this time.
[2024-04-06 03:58] VITALS: BP 125/78; PULSE 86; TEMP 98.4
[2024-04-06 07:43] VITALS: BP 107/69; PULSE 85; TEMP 36.7
[2024-04-06 09:00] VITALS: BP_SYST 107
--- NOTE | 2024-04-06 09:44 | NUR ---
PATIENT TO DISCHARGE. HOWEVER NO INFO FOR JOVI (HER FRIEND) ON FILE. THIS RN CALLED LASHAUN (HER SON) AND LEFT A VM FOR CALL BACK.
--- NOTE | 2024-04-06 10:20 | NUR ---
Patient wore hospital CPAP last night without any problems. she states the mask was not as tight fitting as the one at home. CPAP removed from room at her request.
--- NOTE | 2024-04-06 11:30 | NUR ---
RAEANN Sandoval notified ROMAINE that she has been unable to reach patient's son today. ROMAINE called Alan and was able to speak with him to notify of patient's discharge today. Alan provided friend Doretha contact number ([phone]). ROMAINE called Doretha to inquire about transportation. Doretha stated that she is driving patient's mother home and will be able to picker feeder patient in about 15 mintues. Doretha voiced surprise that patient is being discharged home. ROMAINE explained patient's improvement and attending's feeling she is stable for discharge and that patient is able to make her own decisions. ROMAINE notified RAEANN Sandoval of transportation. Discharge plan: Home
--- NOTE | 2024-04-06 11:50 | NUR ---
PATIENT GIVEN DISCHARGE INSTRUCTIONS AND EDUCAITON. NO IV ACCESS. PATIENT ABLE TO INDEPENDENTLY STAND PIVOT TO A WHEELCHAIR. PAIENT TAKEN VIA WHEELCHAIR TO PATIENT ENTRANCE BY PCT AND RN STUDENT. PATIENT WAS PICKED UP BY HER FRIEND JOVI. PATIENT LEFT ALERT.
== END 2024-04-06 12:00 | disposition home or self-care (01) ==
LOC: COL.ER 08:31 → MEDICAL 11:31
PROVIDERS: Personal Emergency Response Attendant; ADMIT Internal Medicine
DX: G93.40 Encephalopathy, unspecified (principal); A41.9 Sepsis, unspecified organism; R41.82 Altered mental status, unspecified; F32.2 Major depressive disorder, single episode, severe without psychotic features; G47.00 Insomnia, unspecified; R32 Unspecified urinary incontinence; K21.9 Gastro-esophageal reflux disease without esophagitis; E66.9 Obesity, unspecified; J30.2 Other seasonal allergic rhinitis; G89.29 Other chronic pain; G47.33 Obstructive sleep apnea (adult) (pediatric); Z89.511 Acquired absence of right leg below knee; Z99.89 Dependence on other enabling machines and devices; Z79.82 Long term (current) use of aspirin; F17.200 Nicotine dependence, unspecified, uncomplicated
CPT/HCPCS: G0378; J1650; J2310; J7030; J7120